=== PATIENT | female | born 1965 | race Caucasian/White ===

== ENCOUNTER 2023-01-10 07:33 | Outpatient (CLI) | payer BC, SELFPAY ==
--- NOTE | ~2023-01-10 | MM_ITS ---
EXAMINATION: MM screening osk[facility] BI w belen HISTORY: Screening mammogram TECHNIQUE: Craniocaudal and mediolateral oblique 3-D tomosynthesis images were obtained and synthetic 2-D images were generated. CAD analysis was submitted and interpreted. COMPARISON: No prior mammogram is available for comparison at this institution. BREAST PARENCHYMAL COMPOSITION: The breasts are heterogeneously dense, which may obscure small masses . FINDINGS: There are bilateral mammographic asymmetries including some asymmetric scattered increased density in the posterior upper left breast in the axillary tail area. Comparison with any prior mammogram examinations is recommended initially, with diagnostic mammogram and if necessary ultrasound examination if there is persistent significant change. No malignant calcification, skin thickening or retraction of either breast is evident. IMPRESSION: 1. Bilateral mammographic asymmetries 2. Recommend comparison with prior mammogram examinations, and diagnostic mammography and possibly ul trasound if required depending upon the findings of the comparison BI-RADS Category 0: Incomplete: Needs additional imaging evaluation. Reviewed, dictated and finalized at location A. IMPRESSION: 1. Bilateral mammographic asymmetries 2. Recommend comparison with prior mammogram examinations, and diagnostic mammo graphy and possibly ultrasound if required depending upon the findings of the c omparison BI-RADS Category 0: Incomplete: Needs additional imaging evaluation.
== END 2023-01-10 07:34 | disposition home or self-care (01) ==
PROVIDERS: Visit Provider Obstetrics & Gynecology
DX: Z12.31 Encounter for screening mammogram for malignant neoplasm of breast (principal); R92.8 Other abnormal and inconclusive findings on diagnostic imaging of breast
CPT/HCPCS: 77063; 77067

== ENCOUNTER 2024-03-20 07:44 | Outpatient (CLI) | payer BC, SELFPAY ==
--- NOTE | ~2024-03-20 | MM_ITS ---
EXAMINATION: MM screening osk[facility] BI w belen HISTORY: Screening mammogram TECHNIQUE: Craniocaudal and mediolateral oblique 3-D tomosynthesis images were obtained and synthetic 2-D images were generated. CAD analysis was submitted and interpreted. COMPARISON: 01/10/2023, 09/22/2021, 07/13/2020, 04/26/2020 BREAST PARENCHYMAL COMPOSITION:Dense: The breasts are heterogeneously dense, which may obscure small masses. FINDINGS: No suspicious mass, calcification, or architectural distortion are identified in either delfina ast to suggest malignancy. There has been no suspicious interval change. IMPRESSION: No mammographic evidence of malignancy. Recommend routine screening mammography in one year. BI-RADS Category 1: Negative Reviewed, dictated and finalized at location .
== END 2024-03-20 07:45 | disposition home or self-care (01) ==
LOC: ANHIMG 07:46
PROVIDERS: PCP Family Medicine; Visit Provider Obstetrics & Gynecology
DX: Z12.31 Encounter for screening mammogram for malignant neoplasm of breast (principal)
CPT/HCPCS: 77063; 77067

== ENCOUNTER 2024-12-29 21:03 | Emergency (ER) | payer BC, SELFPAY ==
--- NOTE | ~2024-12-29 | XR_ITS ---
XR finger 3rd RT min 2V Ordering provider: Keshia Alonzo PA-C History: . laceration DISTAL 3RD DIGIT WITH GLASS . Comparison: None. FINDINGS: BONES: No acute fracture or dislocation. 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 SOFT TISSUES: Normal. No radiopaque foreign bodies seen. IMPRESSION: No acute osseous abnormality. No definite radiopaque foreign bodies seen. Reviewed, dictated and finalized at location A.
[2024-12-29 21:05] VITALS: BP 125/79; PULSE 66; RESP 20; TEMP 36.5; O2SAT 100
--- OUTSIDE RECORDS SUMMARY | 2024-12-29 21:05 | XMS_ITS | Clinical Summary ---
Author Organization [facility] Medical Office Building [address] Address [address] [place] [address] Care Team Providers Care Tire Fixer Name Role Phone Matthew Nguyen MD Primary Care Provider Lorrie Rouse OD Unavailable [phone] Noble Elkins MD Unavailable [phone] Alka Tom MD Unavailable [phone] Allergies No known active allergies Medications multivitamin-Ca- iron-minerals tablet Take 1 tablet by mouth daily Active biotin 1 mg tablet Take 1 tablet (1,000 mcg total) by mouth daily Active calcium citrate-vitamin D3 (CITRACAL WITH D) 315 mg-6.25 mcg (250 unit) per tablet Take 1 tablet by mouth daily Active minoxidiL (Rogaine) 5 % foam 07/08/2016 Active omega 6-rsf-uyu-fish oil (Ultra Tilden-3) 200-300-1,000 mg capsule 03/31/2024 Active ALPRAZolam (XANAX) 0.25 mg tablet Take 1 tablet (0.25 mg total) by mouth daily as needed for anxiety (take 30 min prior to flying) 6 tablet 06/08/2024 Active omeprazole (PriLOSEC) 20 mg capsuleIndicatio ns:Gastroesophag eal reflux disease without esophagitis Take 1 capsule (20 mg total) by mouth daily 30 capsule 2 10/09/2024 01/08/20 25 Active Active Problems Problem Noted Date Diagnosed Date Encounter for medical examination to establish c are 05/11/2022 Assessment & Plan (05/11/2022 10:44 AM BIOMETRY TEACHER): A(n) initial well adult visit has been performed today. Sharlene Landry is not up to date on screening tests. She is in need of Cervical cancer screening. She is up to date on needed preventative vaccinations Labs pending Continue current regimen; though we may need to pare down the vitamin D intake based on the lab results Family history of esophageal cancer 05/18/2021 Overview (05/18/2021): Added automatically from request for surgery [id number] Healthcare maintenance 05/17/2021 Overview (09/22/2021): IZ's: [x] Tetanus done 2019 [x] Zoster: done 2019 [] Pneumococcal: PPSV23 before age 65 if CHF, DM, EtOH, liver, smoking; PCV-13 at age 65 with shared decision-making (not universally recommended), PPSV23 for all age >65 Cancer screenings: Last CRC screening: wnl 2020, due again 2030 Lung CA screening: not indicated Last Pap: wnl 03/2020. Repeat 2024 Last Mammo: wnl 08/2021 Other: Last DEXA: Age 63, q3-5 yr [x] HIV status: Nonreactive 08/2021 [] HepB immunity status: [x] HepC status: non-reactive 2020 [] Advanced directive and POLST Assessment & Plan (06/06/2021 8:45 AM BIOMETRY TEACHER): .-- Nutrition: Recommend moderation in sodium, saturated fat and cholesterol, and caffeine intake. Recommend caloric balance, sufficient intake of fresh fruits, vegetables, fiber, calcium, iron, and 1 mg of folate supplement per day (for females capable of ). -- Exercise: Recommend regular exercise, including 150 minutes of moderate aerobic exercise per week, or 75 minutes of vigorous aerobic exercise per week PLUS muscle strengthening exercises at least 2 days per week. -- Substance Use: Recommend cessation/primary prevention of tobacco, alcohol, or other drug use. No driving or other dangerous activities under the influence. Treatment for substance abuse is available. -- Sexuality: Sexually transmitted diseases, partner selection, use of condoms, avoidance of unintended and contraceptive options. -- Injury prevention: Safety belts, safety helmets, smoke and carbon monoxide detectors, smoking near bedding or upholstery. -- Dental health: Recommend regular teeth brushing, flossing, and dental visits. -- Immunizations: Recommend staying up-to-date on influenza, pneumonia, shingles, and TDaP vaccines History of colon polyps 11/29/2020 Overview (06/02/2021): Repeat colonoscopy in 10 years (May 2031) for screening. Use Colowrap again next time Bladder stones 09/19/2020 Assessment & Plan (06/06/2021 8:34 AM BIOMETRY TEACHER): Asymptomatic , continue to monitor Assessment & Plan (09/19/2020 10:00 AM CDT): Irritation ?secondary to bladder stones seen on CT passing through the urethra - low concern for UTI given UA negative for nitrites, only trace LE, no pain or frequency - recommend cranberry juice supplement, probiotic yogurt, stay well hydrated as empiric UTI prevention - do not recommend Abx at this time - RTC if pain worsens or you develop a fever Tinnitus of both ears 09/19/2020 Assessment & Plan (06/06/2021 8:41 AM BIOMETRY TEACHER): Still present, but it is mild. It is bilateral Assessment & Plan (09/19/2020 10:07 AM CDT): Info provided - Ddx most likely vascular in origin (she has known aortic atherosclerosis) vs. Less likely presbycusis, eustachian tube dysfunction, or neurologic in origin - no associated hearing loss - no ototoxic meds - recommend monitoring, no further workup at this time Aortic atherosclerosis 08/16/2020 Overview (08/16/2020): Seen on CTAP incidentally Associated with HLD Assessment & Plan (06/06/2021 8:35 AM BIOMETRY TEACHER): See HLD plan above Mixed hyperlipidemia 08/16/2020 Assessment & Plan (06/06/2021 8:46 AM BIOMETRY TEACHER): Starting statin today given borderline and rising HLD despite good diet and exercise Repeat in 3 months Abdominal pain, RLQ 08/02/2020 Assessment & Plan (06/06/2021 8:27 AM BIOMETRY TEACHER): Every once in a while has RLQ pain that is mild and very intermittent. It has overall been tolerable - LFTs wnl 06/01/21 Assessment & Plan (08/02/2020 2:19 PM BIOMETRY TEACHER): Localized tenderness in RLQ for 3 weeks - 09/07 pain, denies nausea or fever - Ddx acute appendicitis vs. Ovarian cyst. Vs. Torsion. No hernias appreciated. - recommend pelvic US to assess for above - if pelvic US is negative and pain persists, recommend CTAP to assess appendix - ED precautions reviewed - NSAID, tylenol, avoid abd muscle straining until workup is complete - low concern for constipation, diverticulosis, GI malignancy, or infectious gastroenteritis. - denies RUQ or epigastric pain making PUD or biliary colic less likely Resolved Problems Problem Noted Date Diagnosed Date Resolved Date Vertigo 04/07/2020 06/06/2021 Assessment & Plan (04/07/2020 3:19 PM CDT): Symptoms are rare and mild - counselled to call if experiencing worsening symptoms or nausea/vomiting - caution while driving to avoid whiplash effect and triggering vertigo - reviewed Abigail's maneuver, to use prn Visit for preventive health examination 04/07/2020 06/02/2021 Assessment & Plan (04/07/2020 3:18 PM CDT): Due for annual screenings including: Mammogram, colonoscopy, lipid screen, liver, kidney, thyroid screen, HepC, anemia check - not indicated: DM screen - Pap performed Mar 2020, will obtain prior records. IF done with HPV, due again 2024. If not done with HPV, due 2022 - counselled on healthy diet and exercise Encounter for screening mamm ogram for breast cancer 04/07/2020 06/06/2021 Assessment & Plan (04/07/2020 3:18 PM CDT): Given strong family history of various cancers (mother, father, sibling), consider testing for FAP or BRCA - she is asymptomatic at this time - pt counselled on option of genetic counselling, this remains an option in the future at any time Encounters Date Type Department Care Team Description 5 Results Follow-Up [facility] Gastroenterology at [address] [address] Jonathan Santos MD Surgical pathology 5 7:15 AM CDT - 5 7:30 AM CDT Surgery [facility] [address] [place] [address] Jonathan Santos MD ESOPHAGOGASTRODUODENOSCOPY BIOPSY 5 7:10 AM CDT Anesthesia Event [facility] [address] [place] [address] Luciana Eli MD 5 6:04 AM CDT - 5 8:10 AM CDT Hospital Encounter [facility] [address] [place] [address] Jonathan Santos MD Family history of esophageal cancer Discharge Disposition: Discharge to home or self care 5 Orders Only [facility] Gastroenterology at [address] [address] Jonathan Santos MD Gastroesophageal reflux disease without esophagitis (Primary Dx) from Last 3 Months Immunizations Immunization Administration Dates Next Due Influenza, Quadrivalent, Aleyda l Culture-based MDCK, Preservative Free, Antibiotic Free, Intramuscular 04/04/2020 Influenza, Quadrivalent, Spl it, Preservative Free, Intramuscular 05/13/2023,04/24/2022,06/06/2021 Influenza, Trivalent, Preser vative Free, Intramuscular 05/08/2024 Influenza, Unspecified 04/04/2020,03/31/2019 Pfizer SARS-CoV-2 Monovalent Vaccination (12+ Yrs) PURPLE 10/21/2020,09/28/2020 Tdap 04/07/2020 ZOSTER Recombinant 06/07/2020,04/07/2020 Surgical History Surgery Date Site/Laterality Comments TUBAL LIGATION 07/01/2002 - 06/30/2003 age 38 HERNIA REPAIR 07/01/2002 - 06/30/2003 BREAST LUMPECTOMY 07/01/2001 - 06/30/2002 Left benign BREAST CYST EXCISION 07/01/2001 - 06/30/2002 Left COLONOSCOPY UPPER GASTROINTESTINAL ENDOSCOPY Medical History Medical History Date Comments Vertigo 04/07/2020 Hyperlipidemia Family History Medical History Relation Name Comments Esophageal cancer Father Hyperlipidemia Father Hypertension Father Skin cancer Father Endometrial cancer Mother at age 72 kidney cyst Mother Breast cancer Other aunt and cousi ns Colon polyps Other Thyroid cancer Sister no chemo, wel l as of 03/2020 Relation Name Status Comments Father Alive Mother Other Sister Social History Tobacco Use Types Packs/Day Years Used Date Smoking Tobacco: Never Passive Smoke Exposure: Never Smokeless Tobacco: Never Alcohol Use Standard Drinks/Week Comments Yes 2 (1 standard drink = 0.6 oz pur e alcohol) occ AUDIT-C Answer Date Recorded Q1: How often do you have a drink containing alc ohol? Monthly or less 10/09/2024 Q2: How many drinks containi ng alcohol do you have on a typical day when you are drinking? 1 or 2 10/09/2024 Q3: How often do you have si x or more drinks on one occasion? Never 10/09/2024 PHQ-2 Answer Date Recorded PHQ-2 Total Score (If total score is 3 or more points, staff should administer the PHQ-9) 0 05/18/2024 Personal Safety Answer Date Recorded Have you ever been in or are you currently in a harmful physical or emotional relationship or is someone making you feel afraid or unsafe? 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 on file Not on file Not on file Obstetrics History Last Filed Vital Signs Vital Sign Reading Time Taken Comments Blood Pressure 100/57 10/09/2024 7:50 AM CDT Pulse 73 10/09/2024 7:50 AM CDT Temperature 36.3 C (97.4 F) 10/09/2024 7:23 AM CDT Respiratory Rate 18 10/09/2024 7:50 AM CDT Oxygen Saturation 99% 10/09/2024 7:50 AM CDT Inhaled Oxygen Concentration - - Weight 61.2 kg (135 lb) 10/09/2024 6:35 AM CDT Height 162.6 cm (5' 4) 05/18/2024 8:12 AM BIOMETRY TEACHER Body Mass Index 23.17 05/18/2024 8:12 AM BIOMETRY TEACHER Plan of Treatment Health Maintenance Due Date Last Done Comments Hepatitis B Screening 1981 Influenza Vaccine (#1) 2025 , 05/13/2023, 04/24/2022, Additional history exists Breast Cancer Screening-Mammogram 03/20/2025 03/20/2024, 01/10/2023, 09/22/2021, Additional history exists Depression Screening 05/18/2025 05/18/2024, 05/13/2023, 05/07/2022, Additional history exists Regular Well Visit/Exam 18-64 05/18/2025 05/18/2024, 05/13/2023, 05/07/2022, Additional history exists Cervical Cancer Screening 06/30/20252023, 04/17/2023, 03/10/2020, Additional history exists Postponed from 05/07/2025 (Patient declined, but will receive in the future) Colon Cancer Screening-Colonoscopy 05/17/2026 05/17/2021, 08/23/2011 DTaP/Tdap/Td Vaccine (2 - Td or Tdap) 04/07/2030 04/07/2020 Zoster Vaccine Completed 06/07/2020, 04/07/2020 Hepatitis C Screening Completed 07/14/2020 Covid-19 Vaccine Completed 05/08/2024, , 06/07/2021, Additional history exists Pneumococcal vaccine <65 Aged Out No longer eligible based on patient's age to complete this topic Procedures Procedure Name Priority Date/Time Associated Diagnosis Comments SURGICAL PATHOLOGY Routine 10/09/2024 7:20 AM CDT Family history of esophageal cancer EGD 10/09/2024 7:14 AM CDT ESOPHAGOGASTRODUODENOSCOPY BIOPSY 10/09/2024 7:11 AM CDT Family history of esophageal cancer HM PAP SMEAR WITH HPV Routine 05/07/2024 8:41 AM BIOMETRY TEACHER HM MAMMOGRAPHY Routine 03/20/2024 2:56 PM CDT COLONOSCOPY 05/17/2021 2:32 PM BIOMETRY TEACHER HEPATITIS C ANTIBODY Routine 07/14/2020 8:17 AM BIOMETRY TEACHER from Last 3 Months or Most Recently Relevant to Health Maintenance Results * Surgical pathology (10/09/2024 7:20 AM CDT) Tissue (Gastric/Stomach biopsy) 10/09/2024 7:20 AM CDT Narrative PATHOLOGY [facility] - 10/12/2024 4:22 PM CDT [facility] Department of Pathology [address] [place] [address] Note to Patients: This report may contain a detailed description of human tissue sent by a health care provider to the laboratory for pathologic evaluation. The content of this report is essential for diagnosis and may provide important critical findings. This information may be unfamiliar to patients to review without a medical professional present. It is advised that the patient review this report in the presence of a health care provider who can answer questions and explain the details. Final Report Patient Name: SHARLENE LANDRY : 1965 (Age: 59) Gender: F Address: [address] [place] [address] Hospital #: [id number] Service: Gastro Location: Patient Type: [facility] OUTPATIENT Taken: 10/09/2024 Received: 10/09/2024 Accessioned: 10/09/2024 Reported: 10/12/2024 Physician(s): MD Matthew Hawkins M.D. Diagnosis: Gastric, biopsy: - Corpus and antral mucosa with no significant pathologic change. - No H. pylori or intestinal metaplasia identified. Christ Morse M.D. Report Electronically Reviewed and Signed Out By Christ Morse M.D. 10/12/2024 16:22:58 Specimen(s) Received: A: Gastric body and antrum biopsy rule out H.Pylori Microscopic Description: Microscopic examination is performed. Microscopic examination is performed. Clinical History: The patient is a 59-year-old woman with a family history of esophageal cancer. Operative procedure: Upper GI endoscopy with biopsy. Gross Description Received in formalin, labeled with the patient s identifiers and gastric body and antrum biopsy rule out H pylori and consists of five elise-pink tissue fragments ranging from 0.2-0.4 cm. Entirely submitted. Labeled A1. Jar 0. [facility]/10/09/2024 12:37 NAHUN Gomez, PA (ASCP) Microscopic slide review and interpretation for this case was performed at [facility], Department of Surgical Pathology, [address] [facility], [place] [id number], [place] [address] CLIA # [id number] Jonathan Santos MD LAB PATHOLOGY ORDERABLES Final Result PATHOLOGY [facility] * EGD (10/09/2024 7:14 AM CDT) Anatomical Region Laterality Modality Other Narrative Procedure Note Jonathan Santos MD - 10/09/2024 7:14 AM CDT [facility] GI ENDOSCOPY Patient Name: Sharlene Landry Procedure Date: 10/09/2024 7:14 AM Date of : 1965 Admit Type: Outpatient Age: 59 Gender: Female Attending MD: Jonathan Santos M.D. Room: [facility] ENDOSCOPY ROOM 06 Note Status: Finalized Procedure: Upper GI endoscopy Indications: Family history of esophageal cancer Referring MD: Providers: Jonathan Santos M.D. Medicines: See the Anesthesia note for documentation of the administered medications Complications: No immediate complications. Estimated Blood Loss: Estimated blood loss was minimal. Procedure: Pre-Anesthesia Assessment: - Prior to the procedure, a History and Physicalwas performed, and patient medications and allergieswere reviewed. The risks and benefits of the procedureand the sedation options and risks were discussed withthe patient. All questions were answered and informed consent was obtained. Patient identification and proposed procedure were verified. After reviewingthe risks and benefits, the patient was deemed in satisfactory condition to undergo the procedure.The anesthesia plan was to use monitored anesthesiacare (MAC). Immediately prior to administration of medications, the patient was re-assessed foradequacy to receive sedatives. The heart rate, respiratory rate, oxygen saturations, blood pressure, adequacyof pulmonary ventilation, and response to care were monitored throughout the procedure. The physical status of the patient was re-assessed after the procedure. The benefits, risks, and alternatives to theprocedure and sedation were discussed and informed consentwas obtained. The scope was passed under direct vision. The Endoscope was introduced through the mouth, and advanced to the second part of duodenum. The upperGI endoscopy was accomplished without difficulty. The patient tolerated the procedure well. Findings: The examined esophagus was normal. A small sliding type hiatal hernia was present. Patchy non-erosive mildly erythematous mucosa was found in thegastric antrum. Biopsies were taken with a cold forceps for Helicobacterpylori testing. The examined duodenum was normal. Impression: - Normal esophagus. - Small hiatal hernia. - Gastritis. Biopsied. - Normal examined duodenum. Recommendation: - Await pathology results. - Resume previous diet today. - Discharge patient to home. - Patient has a contact number available for emergencies. The signs and symptoms of potential delayed complications were discussed with thepatient. Return to normal activities tomorrow. Written discharge instructions were provided to thepatient. - Avoid NSAIDs. Low dose ASA ok if clinicallyindicated - Prilosec 20mg daily 30 minutes before breakfast x8 weeks - I would be happy to see you in my GI clinic ifyou have further questions or concerns or if symptoms progress Jonathan Santos M.D. 10/09/2024 7:25:34 AM Number of Addenda: 0 Note Initiated On: 10/09/2024 7:14 AM Recognized by the [employer] for promoting quality in endoscopy Jonathan Santos MD ENDOSCOPY PROCEDURES Marina l Result * HM PAP SMEAR WITH HPV (05/07/2024 8:41 AM BIOMETRY TEACHER) Historical Provider HEALTH MAINTENANCE Final Result * HM MAMMOGRAPHY (03/20/2024 2:56 PM CDT) Historical Provider HEALTH MAINTENANCE Final Result * COLONOSCOPY (05/17/2021 2:32 PM BIOMETRY TEACHER) Anatomical Region Laterality Modality Other Narrative Procedure Note Dago Gutierrez MD - 05/17/2021 2:32 PM CST [facility] GI Lab Report Patient Name: Procedure Date: 05/17/2021 2:32 PM Date of : 1965 Admit Type: Outpatient Age: 55 Gender: Female Note Status: Finalized Attending MD: Dago Gutierrez M.D. Procedure: Colonoscopy Procedure Date: 05/17/2021 2:32:38 PM Indications: Screening for colorectal malignant neoplasm, Last colonoscopy: 2011 Providers: Dago Gutierrez M.D. Referring Physician: Clive Valdez M.D. Medicines: Monitored Anesthesia Care Complications: No immediate complications. Estimated blood loss:None. Procedure: Pre-Anesthesia Assessment: - Prior to the procedure, a History and Physicalwas performed, and patient medications, allergies and sensitivities were reviewed. The patient'stolerance of previous anesthesia was reviewed. - The risks and benefits of the procedure and the sedation options and risks were discussed with the patient. All questions were answered and informed consent was obtained. - Patient identification and proposed procedurewere verified prior to the procedure by the physician,the nurse and the diesel maintenance technician. The procedure wasverified in the procedure room. - ASA Grade Assessment: II - A patient with mild systemic disease. The benefits, risks and alternatives of theprocedure and sedation were discussed and informed consentwas obtained. All questions were answered. Please referto the signed informed consent document in the medical record. The scope was passed under direct vision.The Colonoscope was introduced through the anus and advanced to the the cecum, identified byappendiceal orifice and ileocecal valve. The colonoscopy was performed without difficulty. The patient tolerated the procedure well. The quality of the bowel preparation was excellent. The bowel preparationused was SUTAB via split dose instruction. Findings: A 3 mm polyp was found in the rectum. The polyp was sessile. Thepolyp was removed with a cold snare. Resection and retrieval werecomplete. The sigmoid colon was moderately tortuous. Advancing the scoperequired straightening and shortening the scope to obtain bowel loopreduction. Colowrap used. Non-bleeding internal hemorrhoids were found during retroflexion. The hemorrhoids were small. Estimated Blood Loss: Estimated blood loss: none. Impression: - One 3 mm polyp in the rectum, removed with a cold snare. Resected and retrieved. - Tortuous colon. Colowrap used. - Non-bleeding internal hemorrhoids. Recommendation: - Await pathology results (7-10 days). - Repeat colonoscopy in 10 years for surveillance based on pathology results. Use Colowrap again next time. - - Use original regular Metamucil one tablespoonby mouth daily as needed for constipation - High fiber diet daily. (More fruits andvegetables, salads) Have patient schedule upper endoscopy at her convenience for evaluation of family history of esophageal cancer. Procedure Code(s): --- Professional --- 13327, Colonoscopy, flexible; with removal of tumor(s), polyp(s), or other lesion(s) by snare technique CPT copyright 2019 [employer]. All rights reserved. Electronically signed by Dr. Gutierrez Dago Gutierrez M.D. 05/17/2021 3:12:13 PM This report has been signed electronically. Number of Addenda: 0 Note Initiated On: 05/17/2021 2:32 PM Dago Gutierrez MD ENDOSCOPY PROCEDURES Ed ited Result - Final * Hepatitis C antibody (07/14/2020 8:17 AM BIOMETRY TEACHER) Hep C Ab <0.1 0.0 - 0.9 s/co ratio [facility] - Comment: Negative: < 0.8 Indeterminate: 0.8 - 0.9 Positive: > 0.9 The CDC recommends that a positive HCV antibody result be followed up with a HCV Nucleic Acid Amplification test (753206). 07/14/2020 8:17 AM BIOMETRY TEACHER 07/14/2020 Narrative [facility] - 07/15/2020 6:09 AM BIOMETRY TEACHER Performed at: [facility] [id number] Teaching Associate: Deangelo Boo PhD, Phone: [phone] Clive Valdez MD LAB MICROBIOLOGY - GENERAL ORD [facility] Final Result [facility] - from Last 3 Months or Most Recently Relevant to Health Maintenance Insurance [employer] [place] [employer] [place] [facility] Advance Directives For more information, please contact: [phone] * Full Code (Latest Code Status on File) Date Activated Date Inactivated Comments 11/29/2021 2:18 PM 11/29/2021 7:57 PM * Full Code Date Activated Date Inactivated Comments 05/17/2021 1:58 PM 05/17/2021 7:56 PM Care Teams Tire Fixer Relationship Specialty Start Date End Date aMtthew Nguyen MD [address] [place] [address] PCP - General Family Medicine 05/07/22 Lorrie Rouse OD [address] [place] [address] Optometry 05/07/22 Noble Elkins MD [address] [place] [address] Referring Physician Obstetrics and Gynecology 05/07/22 Alka Tom MD [address] [facility] [address] [place] [address] Dermatology 05/13/23
--- OUTSIDE RECORDS SUMMARY | 2024-12-29 21:05 | XMS_ITS | Referral Summary ---
Author Organization [facility] 1 Address [address] [place] [address] Care Team Providers Care Fountain Worker Name Role Phone Matthew Nguyen MD Primary Care Provider [phone] Lorrie Rouse OD Unavailable [phone] Noble Elkins MD Unavailable [phone] Alka Tom MD Unavailable Encounters Date Type Department Care Team Description 5 Results Follow-Up [facility] Gastroenterology at [address] [place] [phone] Jonathan Santos MD Surgical pathology 5 Orders Only [facility] Gastroenterology at [address] [place] [phone] Jonathan Santos MD Gastroesophageal reflux disease without esophagitis (Primary Dx) 5 7:15 AM CDT - 5 7:30 AM CDT Surgery [facility] [address] [place] [address] Jonathan Santos MD ESOPHAGOGASTRODUODENOSCOPY BIOPSY 5 7:10 AM CDT Anesthesia Event [facility] [address] [place] [address] Luciana Eli MD 5 6:04 AM CDT - 5 8:10 AM CDT Hospital Encounter [facility] [address] [place] [address] Jonathan Santos MD Family history of esophageal cancer Discharge Disposition: Discharge to home or self care from Last 3 Months Allergies No known active allergies Medications multivitamin-Ca- iron-minerals tablet Take 1 tablet by mouth daily Active biotin 1 mg tablet Take 1 tablet (1,000 mcg total) by mouth daily Active calcium citrate-vitamin D3 (CITRACAL WITH D) 315 mg-6.25 mcg (250 unit) per tablet Take 1 tablet by mouth daily Active minoxidiL (Rogaine) 5 % foam 07/08/2016 Active omega 0-xtu-cdj-fish oil (Ultra [place]-3) 200-300-1,000 mg capsule 03/31/2024 Active ALPRAZolam (XANAX) [...] 05/11/2022 Assessment & Plan (05/11/2022 10:44 AM BIKE SHOP MANAGER): A(n) initial well adult visit has been performed today. Carolyn Landry is not up to date on screening tests. She is in need of Cervical cancer screening. She is up to date on needed preventative vaccinations Labs pending Continue current regimen; though we may need to pare down the vitamin D intake based on the lab results Family history of esophageal cancer 05/18/2021 Overview (05/18/2021): Added automatically from request for surgery [id number] Healthcare maintenance 05/17/2021 Overview (09/22/2021): IZ's: [x] [...] POLST Assessment & Plan (06/06/2021 8:45 AM BIKE SHOP MANAGER): .-- Nutrition: Recommend moderation in sodium, saturated [...] 09/19/2020 Assessment & Plan (06/06/2021 8:34 AM BIKE SHOP MANAGER): Asymptomatic , continue to monitor Assessment & [...] 09/19/2020 Assessment & Plan (06/06/2021 8:41 AM BIKE SHOP MANAGER): Still present, but it is mild. It [...] HLD Assessment & Plan (06/06/2021 8:35 AM BIKE SHOP MANAGER): See HLD plan above Mixed hyperlipidemia 08/16/2020 Assessment & Plan (06/06/2021 8:46 AM BIKE SHOP MANAGER): Starting statin today given borderline and rising HLD despite good diet and exercise Repeat in 3 months Abdominal pain, RLQ 08/02/2020 Assessment & Plan (06/06/2021 8:27 AM BIKE SHOP MANAGER): Every once in a while has RLQ pain that is mild and very intermittent. It has overall been tolerable - LFTs wnl 06/01/21 Assessment & Plan (08/02/2020 2:19 PM BIKE SHOP MANAGER): Localized tenderness in RLQ for 3 weeks [...] option in the future at any time Immunizations Immunization Administration Dates Next Due Influenza, Quadrivalent, Aleyda l Culture-based MDCK, Preservative Free, Antibiotic Free, Intramuscular 04/04/2020 Influenza, Quadrivalent, Spl it, Preservative Free, Intramuscular 05/13/2023,04/24/2022,06/06/2021 Influenza, Trivalent, Preser vative Free, Intramuscular 05/08/2024 Influenza, Unspecified 04/04/2020,03/31/2019 Pfizer SARS-CoV-2 Monovalent Vaccination (12+ Yrs) PURPLE 10/21/2020,09/28/2020 Tdap 04/07/2020 ZOSTER Recombinant 06/07/2020,04/07/2020 Social History Tobacco Use Types Packs/Day Years [...] file Not on file Not on file Last Filed Vital Signs Vital Sign Reading [...] 162.6 cm (5' 4) 05/18/2024 8:12 AM BIKE SHOP MANAGER Body Mass Index 23.17 05/18/2024 8:12 AM BIKE SHOP MANAGER Plan of Treatment Not on file Procedures Procedure Name Priority Date/Time Associated Diagnosis Comments SURGICAL PATHOLOGY Routine 10/09/2024 7:20 AM CDT Family history of esophageal cancer EGD 10/09/2024 7:14 AM CDT ESOPHAGOGASTRODUODENOSCOPY BIOPSY 10/09/2024 7:11 AM CDT Family history of esophageal cancer HM PAP SMEAR WITH HPV Routine 05/07/2024 8:41 AM BIKE SHOP MANAGER HM MAMMOGRAPHY Routine 03/20/2024 2:56 PM CDT COLONOSCOPY 05/17/2021 2:32 PM BIKE SHOP MANAGER HEPATITIS C ANTIBODY Routine 07/14/2020 8:17 AM BIKE SHOP MANAGER from Last 3 Months or Most Recently Relevant to Health Maintenance Results * Surgical pathology (10/09/2024 7:20 AM CDT) Tissue (Gastric/Stomach biopsy) 10/09/2024 7:20 AM CDT Narrative PATHOLOGY [facility] - 10/12/2024 4:22 PM CDT [facility] Department of Pathology [address] [place] [address] Note to Patients: This report may contain [...] explain the details. Final Report Patient Name: CAROLYN LANDRY : 1965 (Age: 59) Gender: F Address: [address] [place] [address] Hospital #: [id number] Service: Gastro Location: Patient Type: [facility] OUTPATIENT Taken: 10/09/2024 Received: 10/09/2024 Accessioned: 10/09/2024 [...] cm. Entirely submitted. Labeled A1. Jar 0. [facility]/10/09/2024 12:37 NAHUN Gomez, PA (ASCP) Microscopic slide review and interpretation for this case was performed at [facility], Department of Surgical Pathology, [address] [facility] [place] [address], [place] [address] CLIA # [id number] us Jonathan Santos MD LAB PATHOLOGY ORDERABLES Final Result PATHOLOGY [facility] * EGD (10/09/2024 7:14 AM CDT) Anatomical Region Laterality Modality Other Narrative Procedure Note Jonathan Santos MD - 10/09/2024 7:14 AM CDT [facility] GI ENDOSCOPY Patient Name: Carolyn Landry Procedure Date: 10/09/2024 7:14 AM Date of : 1965 Admit Type: Outpatient Age: 59 Gender: Female Attending MD: Jonathan Santos M.D. Room: [facility] ENDOSCOPY ROOM 06 Note Status: Finalized Procedure: [...] On: 10/09/2024 7:14 AM Recognized by the [employer] [employer] for promoting quality in endoscopy Jonathan Santos MD ENDOSCOPY PROCEDURES Amrina l Result * HM PAP SMEAR WITH HPV (05/07/2024 8:41 AM BIKE SHOP MANAGER) us Historical Provider HEALTH MAINTENANCE Final Result * HM MAMMOGRAPHY (03/20/2024 2:56 PM CDT) us Historical Provider HEALTH MAINTENANCE Final Result * COLONOSCOPY (05/17/2021 2:32 PM BIKE SHOP MANAGER) Anatomical Region Laterality Modality Other Narrative Procedure Note Dago Gutierrez MD - 05/17/2021 2:32 PM CST [facility] GI Lab Report Patient Name: Procedure Date: [...] procedure by the physician,the nurse and the stain applicator. The procedure wasverified in the procedure room. [...] esophageal cancer. Procedure Code(s): --- Professional --- 50566, Colonoscopy, flexible; with removal of tumor(s), polyp(s), or other lesion(s) by snare technique CPT copyright 2019 [employer]. All rights reserved. Electronically signed by Dr. Gutierrez Dago Gutierrez M.D. 05/17/2021 3:12:13 PM This report has been signed electronically. Number of Addenda: 0 Note Initiated On: 05/17/2021 2:32 PM Dago Gutierrez MD ENDOSCOPY PROCEDURES Ed ited Result - Final * Hepatitis C antibody (07/14/2020 8:17 AM BIKE SHOP MANAGER) Hep C Ab <0.1 0.0 - 0.9 s/co ratio [facility] - Comment: Negative: < 0.8 Indeterminate: 0.8 - 0.9 Positive: > 0.9 The CDC recommends that a positive HCV antibody result be followed up with a HCV Nucleic Acid Amplification test (553543). 07/14/2020 8:17 AM BIKE SHOP MANAGER 07/14/2020 Narrative [facility] - 07/15/2020 6:09 AM BIKE SHOP MANAGER Performed at: - [facility] [id number] Control Manager: Deangelo Boo PhD, Phone: [phone] Clive Valdez MD LAB MICROBIOLOGY - [facility] Final Result Performing Organization Address City/State/[facility] Co de Phone Number [facility] from Last 3 Months or Most Recently Relevant to Health Maintenance Insurance [employer] [place] [employer] [place] [facility] Advance Directives For more information, please contact: [phone] * Full Code (Latest Code Status on File) Date Activated Date Inactivated Comments 11/29/2021 2:18 PM 11/29/2021 7:57 PM * Full Code Date Activated Date Inactivated Comments 05/17/2021 1:58 PM 05/17/2021 7:56 PM Care Teams Fountain Worker Relationship Specialty Start Date End Date Matthew Nguyen MD [address] [place] [address] PCP - General Family Medicine 05/07/22 Lorrie Rouse OD [address] [place] [address] Optometry 05/07/22 Noble Elkins MD [address] [place], [place] [phone] Referring Physician Obstetrics and Gynecology 05/07/22 Alka Tom MD [address] [place] [address] Dermatology 05/13/23
--- OUTSIDE RECORDS SUMMARY | 2024-12-29 22:02 | XMS_ITS | Clinical Summary ---
Author Organization [facility] Medical Office Building 1 Address [address] [place] [address] Care Team Providers Care Cloth Packer Name Role Phone Matthew Nguyen MD Primary Care Provider Lorrie Rouse OD Unavailable [phone] Noble Elkins MD Unavailable [phone] Alka Tmo MD Unavailable [phone] Allergies No known active allergies Medications multivitamin-Ca- iron-minerals tablet Take 1 tablet by mouth daily Active biotin 1 mg tablet Take 1 tablet (1,000 mcg total) by mouth daily Active calcium citrate-vitamin D3 (CITRACAL WITH D) 315 mg-6.25 mcg (250 unit) per tablet Take 1 tablet by mouth daily Active minoxidiL (Rogaine) 5 % foam 07/08/2016 Active omega 2-yef-smc-fish oil (Ultra [place]-3) 200-300-1,000 mg capsule 03/31/2024 Active ALPRAZolam (XANAX) [...] 05/11/2022 Assessment & Plan (05/11/2022 10:44 AM KEY ACCOUNT DIRECTOR): A(n) initial well adult visit has been [...] (05/18/2021): Added automatically from request for surgery [id number] Healthcare maintenance 05/17/2021 Overview (09/22/2021): IZ's: [x] [...] POLST Assessment & Plan (06/06/2021 8:45 AM KEY ACCOUNT DIRECTOR): .-- Nutrition: Recommend moderation in sodium, saturated [...] 09/19/2020 Assessment & Plan (06/06/2021 8:34 AM KEY ACCOUNT DIRECTOR): Asymptomatic , continue to monitor Assessment & [...] 09/19/2020 Assessment & Plan (06/06/2021 8:41 AM KEY ACCOUNT DIRECTOR): Still present, but it is mild. It [...] HLD Assessment & Plan (06/06/2021 8:35 AM KEY ACCOUNT DIRECTOR): See HLD plan above Mixed hyperlipidemia 08/16/2020 Assessment & Plan (06/06/2021 8:46 AM KEY ACCOUNT DIRECTOR): Starting statin today given borderline and rising HLD despite good diet and exercise Repeat in 3 months Abdominal pain, RLQ 08/02/2020 Assessment & Plan (06/06/2021 8:27 AM KEY ACCOUNT DIRECTOR): Every once in a while has RLQ pain that is mild and very intermittent. It has overall been tolerable - LFTs wnl 06/01/21 Assessment & Plan (08/02/2020 2:19 PM KEY ACCOUNT DIRECTOR): Localized tenderness in RLQ for 3 weeks [...] Department Care Team Description 5 Results Follow-Up [facility] Gastroenterology at [address] [phone] Jonathan Santos MD Surgical pathology 5 7:15 AM CDT - 5 7:30 AM CDT Surgery [facility] [address] [place] [address] Jonathan Santos MD ESOPHAGOGASTRODUODENOSCOPY BIOPSY 5 7:10 AM CDT Anesthesia Event [facility] [address] [place] [address] Luciana Eli MD 5 6:04 AM CDT - 5 8:10 AM CDT Hospital Encounter [facility] [address] [place] [address] Jonathan Santos MD Family history of esophageal cancer Discharge Disposition: Discharge to home or self care 5 Orders Only [facility] Gastroenterology at [address] [phone] Jonathan Santos MD Gastroesophageal reflux disease without [...] 162.6 cm (5' 4) 05/18/2024 8:12 AM KEY ACCOUNT DIRECTOR Body Mass Index 23.17 05/18/2024 8:12 AM KEY ACCOUNT DIRECTOR Plan of Treatment Health Maintenance Due Date [...] SMEAR WITH HPV Routine 05/07/2024 8:41 AM KEY ACCOUNT DIRECTOR HM MAMMOGRAPHY Routine 03/20/2024 2:56 PM CDT COLONOSCOPY 05/17/2021 2:32 PM KEY ACCOUNT DIRECTOR HEPATITIS C ANTIBODY Routine 07/14/2020 8:17 AM KEY ACCOUNT DIRECTOR from Last 3 Months or Most Recently Relevant to Health Maintenance Results * Surgical pathology (10/09/2024 7:20 AM CDT) Tissue (Gastric/Stomach biopsy) 10/09/2024 7:20 AM CDT Narrative PATHOLOGY [facility] - 10/12/2024 4:22 PM CDT [facility] Department of Pathology [address] [place] [address] Note to Patients: This report may contain [...] : 1965 (Age: 59) Gender: F Address: [address] [place] [address] Hospital #: [id number] Service: Gastro Location: Patient Type: [facility] OUTPATIENT Taken: 10/09/2024 Received: 10/09/2024 Accessioned: 10/09/2024 [...] cm. Entirely submitted. Labeled A1. Jar 0. [facility]/10/09/2024 12:37 NAHUN Gomez, PA (ASCP) Microscopic slide review and interpretation for this case was performed at [facility], Department of Surgical Pathology, [address] [facility] [place], [place] [id number], [place] [address] CLIA # [id number] Jonathan Santos MD LAB PATHOLOGY ORDERABLES Final Result PATHOLOGY [facility] * EGD (10/09/2024 7:14 AM CDT) Anatomical Region Laterality Modality Other Narrative Procedure Note Jonathan Santos MD - 10/09/2024 7:14 AM CDT [facility] GI ENDOSCOPY Patient Name: Sharlene Landry Procedure Date: 10/09/2024 7:14 AM Date of : 1965 Admit Type: Outpatient Age: 59 Gender: Female Attending MD: Jonathan Santos M.D. Room: [facility] ENDOSCOPY ROOM 06 Note Status: Finalized Procedure: [...] On: 10/09/2024 7:14 AM Recognized by the [employer] [place] [employer] for promoting quality in endoscopy Jonathan Santos MD ENDOSCOPY PROCEDURES Marina l Result * HM PAP SMEAR WITH HPV (05/07/2024 8:41 AM KEY ACCOUNT DIRECTOR) Historical Provider HEALTH MAINTENANCE Final Result * HM MAMMOGRAPHY (03/20/2024 2:56 PM CDT) Historical Provider HEALTH MAINTENANCE Final Result * COLONOSCOPY (05/17/2021 2:32 PM KEY ACCOUNT DIRECTOR) Anatomical Region Laterality Modality Other Narrative Procedure Note Dago Gutierrez MD - 05/17/2021 2:32 PM CST [facility] GI Lab Report Patient Name: Procedure Date: [...] procedure by the physician,the nurse and the resilient tile installer. The procedure wasverified in the procedure room. [...] esophageal cancer. Procedure Code(s): --- Professional --- 79608, Colonoscopy, flexible; with removal of tumor(s), polyp(s), or other lesion(s) by snare technique CPT copyright 2019 [employer] [place] [employer]. All rights reserved. Electronically signed by Dr. Gutierrez Dago Gutierrez M.D. 05/17/2021 3:12:13 PM This report has been signed electronically. Number of Addenda: 0 Note Initiated On: 05/17/2021 2:32 PM Dago Gutierrez MD ENDOSCOPY PROCEDURES Ed ited Result - Final * Hepatitis C antibody (07/14/2020 8:17 AM KEY ACCOUNT DIRECTOR) Hep C Ab <0.1 0.0 - 0.9 s/co ratio [facility] - Comment: Negative: < 0.8 Indeterminate: 0.8 - 0.9 Positive: > 0.9 The CDC recommends that a positive HCV antibody result be followed up with a HCV Nucleic Acid Amplification test (816083). 07/14/2020 8:17 AM KEY ACCOUNT DIRECTOR 07/14/2020 Narrative [facility] - 07/15/2020 6:09 AM KEY ACCOUNT DIRECTOR Performed at: [facility] [id number] Pressurised Container Filler: Deangelo Boo PhD, Phone: [phone] Clive Valdez MD LAB MICROBIOLOGY - [facility] Final Result [facility] - from Last 3 Months or Most Recently Relevant to Health Maintenance Insurance [employer] [place] [employer] [place] [facility] Advance Directives For more information, please contact: [phone] * Full Code (Latest Code Status on File) Date Activated Date Inactivated Comments 11/29/2021 2:18 PM 11/29/2021 7:57 PM * Full Code Date Activated Date Inactivated Comments 05/17/2021 1:58 PM 05/17/2021 7:56 PM Care Teams Cloth Packer Relationship Specialty Start Date End Date Matthew Nguyen MD [address] [place] [address] PCP - General Family Medicine 05/07/22 Lorrie Rouse OD [address] [place] [address] Optometry 05/07/22 Noble Elkins MD [address] [place] [address] Referring Physician Obstetrics and Gynecology 05/07/22 Alka Tom MD [address] [facility] [address] [place] [address] Dermatology 05/13/23
--- OUTSIDE RECORDS SUMMARY | 2024-12-29 22:02 | XMS_ITS | Referral Summary ---
Author Organization [facility] 1 Address [address] [place] [address] Care Team Providers Care Hoop Puncher Name Role Phone Matthew Nguyen MD Primary Care Provider Lorrie Rouse OD Unavailable [phone] Noble Elkins MD Unavailable [phone] Alka Tom MD Unavailable Encounters Date Type Department Care Team Description 5 Results Follow-Up [facility] Gastroenterology at [address] [place] [phone] Jonathan Santos MD Surgical pathology 5 Orders Only [facility] Gastroenterology at [address] [place] [phone] Jonathan Santos MD Gastroesophageal reflux disease without esophagitis (Primary Dx) 5 7:15 AM CDT - 5 7:30 AM CDT Surgery [facility] GI Lab [address] [place] [phone] Jonathan Santos MD ESOPHAGOGASTRODUODENOSCOPY BIOPSY 5 7:10 AM CDT Anesthesia Event [facility] GI [facility] [address] [place] [phone] Luciana Eli MD 5 6:04 AM CDT - 5 8:10 AM CDT Hospital Encounter [facility] GI Lab [address] [place] [address] Jonathan Santos MD Family history of esophageal [...] (Rogaine) 5 % foam 07/08/2016 Active omega 9-shk-vfr-fish oil (Ultra [place]-3) 200-300-1,000 mg capsule 03/31/2024 Active ALPRAZolam (XANAX) [...] 05/11/2022 Assessment & Plan (05/11/2022 10:44 AM WATER RIGHTS SPECIALIST): A(n) initial well adult visit has been [...] (05/18/2021): Added automatically from request for surgery [id number] Healthcare maintenance 05/17/2021 Overview (09/22/2021): IZ's: [x] [...] POLST Assessment & Plan (06/06/2021 8:45 AM WATER RIGHTS SPECIALIST): .-- Nutrition: Recommend moderation in sodium, saturated [...] 09/19/2020 Assessment & Plan (06/06/2021 8:34 AM WATER RIGHTS SPECIALIST): Asymptomatic , continue to monitor Assessment & [...] 09/19/2020 Assessment & Plan (06/06/2021 8:41 AM WATER RIGHTS SPECIALIST): Still present, but it is mild. It [...] HLD Assessment & Plan (06/06/2021 8:35 AM WATER RIGHTS SPECIALIST): See HLD plan above Mixed hyperlipidemia 08/16/2020 Assessment & Plan (06/06/2021 8:46 AM WATER RIGHTS SPECIALIST): Starting statin today given borderline and rising HLD despite good diet and exercise Repeat in 3 months Abdominal pain, RLQ 08/02/2020 Assessment & Plan (06/06/2021 8:27 AM WATER RIGHTS SPECIALIST): Every once in a while has RLQ pain that is mild and very intermittent. It has overall been tolerable - LFTs wnl 06/01/21 Assessment & Plan (08/02/2020 2:19 PM WATER RIGHTS SPECIALIST): Localized tenderness in RLQ for 3 weeks [...] 162.6 cm (5' 4) 05/18/2024 8:12 AM WATER RIGHTS SPECIALIST Body Mass Index 23.17 05/18/2024 8:12 AM WATER RIGHTS SPECIALIST Plan of Treatment Not on file Procedures Procedure Name Priority Date/Time Associated Diagnosis Comments SURGICAL PATHOLOGY Routine 10/09/2024 7:20 AM CDT Family history of esophageal cancer EGD 10/09/2024 7:14 AM CDT ESOPHAGOGASTRODUODENOSCOPY BIOPSY 10/09/2024 7:11 AM CDT Family history of esophageal cancer HM PAP SMEAR WITH HPV Routine 05/07/2024 8:41 AM WATER RIGHTS SPECIALIST HM MAMMOGRAPHY Routine 03/20/2024 2:56 PM CDT COLONOSCOPY 05/17/2021 2:32 PM WATER RIGHTS SPECIALIST HEPATITIS C ANTIBODY Routine 07/14/2020 8:17 AM WATER RIGHTS SPECIALIST from Last 3 Months or Most Recently Relevant to Health Maintenance Results * Surgical pathology (10/09/2024 7:20 AM CDT) Tissue (Gastric/Stomach biopsy) 10/09/2024 7:20 AM CDT Narrative PATHOLOGY [facility] - 10/12/2024 4:22 PM CDT [facility] Department of Pathology [address] [place] [address] Note to Patients: This report may contain [...] 1965 (Age: 59) Gender: F Address: [address] [place] [address] Hospital #: [id number] Service: Gastro Location: Patient Type: [facility] OUTPATIENT Taken: 10/09/2024 Received: 10/09/2024 Accessioned: [...] cm. Entirely submitted. Labeled A1. Jar 0. [facility]/10/09/2024 12:37 NAHUN Gomez, PA (ASCP) Microscopic slide review and interpretation for this case was performed at [facility], Department of Surgical Pathology, [address] [facility] [address], [place] [address] CLIA # [id number] us Jonathan Santos MD LAB PATHOLOGY ORDERABLES Final Result PATHOLOGY [facility] * EGD (10/09/2024 7:14 AM CDT) Anatomical Region Laterality Modality Other Narrative Procedure Note Jonathan Santos MD - 10/09/2024 7:14 AM CDT [facility] GI ENDOSCOPY Patient Name: Carolyn Landry Procedure Date: 10/09/2024 7:14 AM Date of : 1965 Admit Type: Outpatient Age: 59 Gender: Female Attending MD: Jonathan Santos M.D. Room: [facility] ENDOSCOPY ROOM 06 Note Status: Finalized Procedure: [...] On: 10/09/2024 7:14 AM Recognized by the [employer] for promoting quality in endoscopy Jonathan Santos MD ENDOSCOPY PROCEDURES Marina l Result * HM PAP SMEAR WITH HPV (05/07/2024 8:41 AM WATER RIGHTS SPECIALIST) us Historical Provider HEALTH MAINTENANCE Final Result * HM MAMMOGRAPHY (03/20/2024 2:56 PM CDT) us Historical Provider HEALTH MAINTENANCE Final Result * COLONOSCOPY (05/17/2021 2:32 PM WATER RIGHTS SPECIALIST) Anatomical Region Laterality Modality Other Narrative Procedure Note Dago Gutierrez MD - 05/17/2021 2:32 PM CST [facility] GI Lab Report Patient Name: Procedure Date: [...] procedure by the physician,the nurse and the flatwork catcher. The procedure wasverified in the procedure room. [...] esophageal cancer. Procedure Code(s): --- Professional --- 81020, Colonoscopy, flexible; with removal of tumor(s), polyp(s), or other lesion(s) by snare technique CPT copyright 2019 [employer]. All rights reserved. Electronically signed by Dr. Gutierrez Dago Gutierrez M.D. 05/17/2021 3:12:13 PM This report has been signed electronically. Number of Addenda: 0 Note Initiated On: 05/17/2021 2:32 PM Dago Gutierrez MD ENDOSCOPY PROCEDURES Ed ited Result - Final * Hepatitis C antibody (07/14/2020 8:17 AM WATER RIGHTS SPECIALIST) Hep C Ab <0.1 0.0 - 0.9 s/co ratio [facility] - Comment: Negative: < 0.8 Indeterminate: 0.8 - 0.9 Positive: > 0.9 The CDC recommends that a positive HCV antibody result be followed up with a HCV Nucleic Acid Amplification test (775657). 07/14/2020 8:17 AM WATER RIGHTS SPECIALIST 07/14/2020 Narrative [facility] - 07/15/2020 6:09 AM WATER RIGHTS SPECIALIST Performed at: - [facility] [id number] Cutter V Groove: Deangelo Boo PhD, Phone: [phone] Clive Valdez MD LAB MICROBIOLOGY - [facility] Final Result Performing Organization Address City/State/[facility] Co de Phone Number [facility] from Last 3 Months or Most Recently Relevant to Health Maintenance Insurance [employer] [place] [employer] [place] [facility] Advance Directives For more information, please contact: [phone] * Full Code (Latest Code Status on File) Date Activated Date Inactivated Comments 11/29/2021 2:18 PM 11/29/2021 7:57 PM * Full Code Date Activated Date Inactivated Comments 05/17/2021 1:58 PM 05/17/2021 7:56 PM Care Teams Hoop Puncher Relationship Specialty Start Date End Date Matthew Nguyen MD [address] [place] [address] PCP - General Family Medicine 05/07/22 Lorrie Rouse OD [address] [place] [address] Optometry 05/07/22 Noble Elkins MD [address] [place], [place] [phone] Referring Physician Obstetrics and Gynecology 05/07/22 Alka Tom MD [address] [place] [address] Dermatology 05/13/23
--- NOTE | 2024-12-29 22:05 | ED.WOUNDLAC ---
HPI - Wound/Laceration General Chief Complaint: Wound/Laceration Stated Complaint: wound Time Seen by Provider: 12/29/24 21:48 Source: patient Mode of arrival: ambulatory Limitations: no limitations History of Present Illness HPI narrative: This is a 59-year-old female that presents to the emergency department for laceration to the right 3rd finger. Sustained prior to arrival. Reports her coffee pot broke. She is up-to-date on tetanus vaccination. Denies decreased range of motion or numbness Related Data Allergies Allergy/AdvReac Type Severity Reaction Status Date / Time No Known Allergies Allergy Verified 12/29/24 21:04 Review of Systems Review of Systems: All systems reviewed & are unremarkable except as noted in HPI and below PMFSH Past Medical History Medical History (Updated 12/29/24 @ 22:45 by Keshia Alonzo PA-C) No active medical problems Social History Social History (Updated 12/29/24 @ 22:06 by Keshia Alonzo PA-C) Smoking status: Never smoker Exam Narrative: GENERAL: Well-appearing, well-nourished, and in no acute distress. HEAD: Normocephalic, atraumatic. EYES: EOMI. EXTREMITIES: Normal range of motion. No edema. 1cm superficial laceration to the palmar aspect of the distal phalanx SKIN: Warm, dry, no rash. NEURO: No focal deficits. Alert and oriented x3. PSYCH: Normal mood and affect Course Vital Signs Vital signs: Vital Signs Temperature 97.7 F 12/29/24 21:05 Pulse Rate 66 12/29/24 21:05 Respiratory Rate 12/29/24 21:05 Blood Pressure 125/79 12/29/24 21:05 Pulse Oximetry 100 12/29/24 21:05 Oxygen Delivery Room Air 12/29/24 21:05 Temperature 97.7 F 12/29/24 21:05 Pulse Rate 66 12/29/24 21:05 Respiratory Rate 20 12/29/24 21:05 Blood Pressure 125/79 12/29/24 21:05 Pulse Oximetry 100 12/29/24 21:05 Oxygen Delivery Room Air 12/29/24 21:05 Procedures Laceration Laceration 1: Date: 12/29/24 Time: 22:47 Site: hand Side (If applicable): right Size (cm): 1 Description: linear Depth: simple, single layer Pre-repair: irrigated ====== Skin Level ====== ====== Subcutaneous Layer ====== ====== Muscle Layer ====== ====== Tendon Layer ====== Dressing: Bleeding controlled, superficial laceration covered with antibiotic ointment and a bandage MDM - Wound/Laceration MDM Narrative Medical decision making narrative: Patient presents to the emergency department for superficial laceration to the right 3rd finger. She is neurovascularly intact. Reports she is up-to-date on tetanus vaccination. X-ray of the 3rd finger without acute osseous abnormality or evidence of foreign body. Patient's wound was cleansed and covered with antibiotic ointment and a bandage. Differential Diagnosis Differential diagnosis: Likely laceration, abrasion and avulsion of skin Imaging Data Radiologist's impression: ITS Impressions Finger X-Ray 12/29/24 22:11 IMPRESSION: No acute osseous abnormality. No definite radiopaque foreign bodies seen. Critical Care Time Critical Care Time Critical Care Time: No Discharge Plan Discharge Clinical Impression: Laceration Patient Disposition: Home Condition: Stable Instructions: Laceration (ED) Additional Instructions: Return to the emergency department if you experience fever, redness or swelling of your wound, abnormal drainage from your wound, or any other symptoms that are concerning to you. Apply antibiotic ointment daily. Do not soak the wound. Clean with mild soap and water daily Follow-up with your primary care doctor for wound check if needed Patient Language: Occitan Follow-up/Referrals: Patrick,Matthew Collins MD [Primary Care Provider] -
== END 2024-12-29 22:58 | disposition home or self-care (01) ==
PROVIDERS: Emergency Provider Physician Assistant; PCP Family Medicine
DX: S61.212A Laceration without foreign body of right middle finger without damage to nail, initial encounter (principal); W25.XXXA Contact with sharp glass, initial encounter
CPT/HCPCS: 73140; 99283

== ENCOUNTER 2025-01-08 23:07 | Emergency (ER) | payer BC, SELFPAY ==
--- OUTSIDE RECORDS SUMMARY | 2025-01-08 23:09 | XMS_ITS | Referral Summary ---
Author Organization [facility] 1 Address [address] [place] [address] Care Team Providers Care Museum Tour Guide Name Role Phone Matthew Nguyen MD Primary Care Provider Lorrie Rouse OD Unavailable [phone] Noble Elkins MD Unavailable Alka Tom MD Unavailable [phone] Encounters Date Type Department Care Team Description 5 Orders Only [facility] Primary Care at [address] [phone] ProviderErasto MD 5 Results Follow-Up [facility] Gastroenterology at [address] [place] [phone] Jonathan Santos MD Surgical pathology 5 Orders Only [facility] Gastroenterology at [address] [place] [phone] Jonathan Santos MD Gastroesophageal reflux disease without esophagitis (Primary Dx) 5 7:15 AM CDT - 5 7:30 AM CDT Surgery [facility] GI Lab [address] [place] [address] Jonathan Santos MD ESOPHAGOGASTRODUODENOSCOPY BIOPSY 5 7:10 AM CDT Anesthesia Event [facility] GI Lab [address] [place] [address] Luciana Eli MD 5 6:04 AM CDT - 5 8:10 AM CDT Hospital Encounter [facility] GI Lab [address] [place] [address] Jonathan Santos MD Family history of esophageal [...] (Rogaine) 5 % foam 07/08/2016 Active omega 7-cnx-poz-fish oil (Ultra [place]-3) 200-300-1,000 mg capsule 03/31/2024 Active ALPRAZolam (XANAX) 0.25 mg tablet Take 1 tablet (0.25 mg total) by mouth daily as needed for anxiety (take 30 min prior to flying) 6 tablet 06/08/2024 Active omeprazole (PriLOSEC) 20 mg capsuleIndicatio ns:Gastroesophag eal reflux disease without esophagitis Take 1 capsule (20 mg total) by mouth daily 30 capsule 2 10/09/2024 Active Active Problems Problem Noted Date Diagnosed Date Encounter for medical examination to establish c are 05/11/2022 Assessment & Plan (05/11/2022 10:44 AM TELEVISION ANNOUNCER): A(n) initial well adult visit has been [...] (05/18/2021): Added automatically from request for surgery [id number] Healthcare maintenance 05/17/2021 Overview (09/22/2021): IZ's: [x] [...] POLST Assessment & Plan (06/06/2021 8:45 AM TELEVISION ANNOUNCER): .-- Nutrition: Recommend moderation in sodium, saturated [...] 09/19/2020 Assessment & Plan (06/06/2021 8:34 AM TELEVISION ANNOUNCER): Asymptomatic , continue to monitor Assessment & [...] 09/19/2020 Assessment & Plan (06/06/2021 8:41 AM TELEVISION ANNOUNCER): Still present, but it is mild. It [...] HLD Assessment & Plan (06/06/2021 8:35 AM TELEVISION ANNOUNCER): See HLD plan above Mixed hyperlipidemia 08/16/2020 Assessment & Plan (06/06/2021 8:46 AM TELEVISION ANNOUNCER): Starting statin today given borderline and rising HLD despite good diet and exercise Repeat in 3 months Abdominal pain, RLQ 08/02/2020 Assessment & Plan (06/06/2021 8:27 AM TELEVISION ANNOUNCER): Every once in a while has RLQ pain that is mild and very intermittent. It has overall been tolerable - LFTs wnl 06/01/21 Assessment & Plan (08/02/2020 2:19 PM TELEVISION ANNOUNCER): Localized tenderness in RLQ for 3 weeks [...] 162.6 cm (5' 4) 05/18/2024 8:12 AM TELEVISION ANNOUNCER Body Mass Index 23.17 05/18/2024 8:12 AM TELEVISION ANNOUNCER Plan of Treatment Not on file Procedures Procedure Name Priority Date/Time Associated Diagnosis Comments XR FINGER 3RD MIDDLE RIGHT Schedule Routine, Read Routine (OP Routine) 12/29/2024 11:56 AM CDT SURGICAL PATHOLOGY Routine 10/09/2024 7:20 AM CDT Family history of esophageal cancer EGD 10/09/2024 7:14 AM CDT ESOPHAGOGASTRODUODENOSCOPY BIOPSY 10/09/2024 7:11 AM CDT Family history of esophageal cancer HM PAP SMEAR WITH HPV Routine 05/07/2024 8:41 AM TELEVISION ANNOUNCER HM MAMMOGRAPHY Routine 03/20/2024 2:56 PM CDT COLONOSCOPY 05/17/2021 2:32 PM TELEVISION ANNOUNCER HEPATITIS C ANTIBODY Routine 07/14/2020 8:17 AM TELEVISION ANNOUNCER from Last 3 Months or Most Recently Relevant to Health Maintenance Results * XR Finger 3rd Middle Right (12/29/2024 11:56 AM CDT) Anatomical Region Laterality Modality Upper Extremities, Hand, Fingers Right Radiographic Imaging Historical Provider MD [place] XR PROCEDURES Final R esult * Surgical pathology (10/09/2024 7:20 AM CDT) Tissue (Gastric/Stomach biopsy) 10/09/2024 7:20 AM CDT Narrative PATHOLOGY [facility] - 10/12/2024 4:22 PM CDT [facility] Department of Pathology [address] [place] [address] Note to Patients: This report may contain [...] : 1965 (Age: 59) Gender: F Address: [address] [place], [place] [id number] Hospital #: [id number] Service: Gastro Location: Patient Type: [facility] OUTPATIENT Taken: 10/09/2024 Received: 10/09/2024 [...] cm. Entirely submitted. Labeled A1. Jar 0. [facility]/10/09/2024 12:37 NAHUN Gomez, PA (ASCP) Microscopic slide review and interpretation for this case was performed at [facility], Department of Surgical Pathology, [address] [facility], [id number], [place] [address] CLIA # [id number] us Jonathan Santos MD LAB PATHOLOGY ORDERABLES Final Result PATHOLOGY [facility] * EGD (10/09/2024 7:14 AM CDT) Anatomical Region Laterality Modality Other Narrative Procedure Note Jonathan Santos MD - 10/09/2024 7:14 AM CDT [facility] GI ENDOSCOPY Patient Name: Sharlene Landry Procedure Date: 10/09/2024 7:14 AM Date of : 1965 Admit Type: Outpatient Age: 59 Gender: Female Attending MD: Jonathan Santos M.D. Room: [facility] ENDOSCOPY ROOM 06 Note Status: [...] On: 10/09/2024 7:14 AM Recognized by the [place] for promoting quality in endoscopy Jonathan Santos MD ENDOSCOPY PROCEDURES Marina l Result * HM PAP SMEAR WITH HPV (05/07/2024 8:41 AM TELEVISION ANNOUNCER) Historical Provider HEALTH MAINTENANCE Final Result * HM MAMMOGRAPHY (03/20/2024 2:56 PM CDT) us Historical Provider MD CURTIS HOFFMAN Final Result * COLONOSCOPY (05/17/2021 2:32 PM TELEVISION ANNOUNCER) Anatomical Region Laterality Modality Other Narrative Procedure Note Dago Gutierrez MD - 05/17/2021 2:32 PM CST [facility] GI Lab Report Patient Name: Procedure Date: 05/17/2021 2:32 PM Date of : 1965 Admit Type: Outpatient Age: 55 Gender: Female Note Status: Finalized Attending MD: Dago Guiterrez M.D. Procedure: Colonoscopy Procedure Date: 05/17/2021 2:32:38 [...] procedure by the physician,the nurse and the campus recruiting intern. The procedure wasverified in the procedure room. [...] esophageal cancer. Procedure Code(s): --- Professional --- 07903, Colonoscopy, flexible; with removal of tumor(s), polyp(s), or other lesion(s) by snare technique CPT copyright 2019 [employer]. All rights reserved. Electronically signed by Dr. Gutierrez Dago Gutierrez M.D. 05/17/2021 3:12:13 PM This report has been signed electronically. Number of Addenda: 0 Note Initiated On: 05/17/2021 2:32 PM Dago Gutierrez MD ENDOSCOPY PROCEDURES Ed ited Result - Final * Hepatitis C antibody (07/14/2020 8:17 AM TELEVISION ANNOUNCER) Hep C Ab <0.1 0.0 - 0.9 s/co ratio [facility] - 01 Comment: Negative: < 0.8 Indeterminate: 0.8 - 0.9 Positive: > 0.9 The CDC recommends that a positive HCV antibody result be followed up with a HCV Nucleic Acid Amplification test (125511). 07/14/2020 8:17 AM TELEVISION ANNOUNCER 07/14/2020 Narrative [facility] - 07/15/2020 6:09 AM TELEVISION ANNOUNCER Performed at: - [facility] [id number] Server Systems Administrator: Deangelo Boo PhD, Phone: [phone] Clive Valdez MD LAB MICROBIOLOGY - [facility] Final Result [facility] - 01 from Last 3 Months or Most Recently Relevant to Health Maintenance Insurance [employer] [place] [employer] [place] Advance Directives For more information, please contact: [phone] * Full Code (Latest Code Status on File) Date Activated Date Inactivated Comments 11/29/2021 2:18 PM 11/29/2021 7:57 PM * Full Code Date Activated Date Inactivated Comments 05/17/2021 1:58 PM 05/17/2021 7:56 PM Care Teams Museum Tour Guide Relationship Specialty Start Date End Date Matthew Nguyen MD [address] [place] [id number] PCP - General Family Medicine 05/07/22 Lorrie Rouse OD [address] [place] [address] Optometry 05/07/22 Noble Elkins MD [address] [facility] [address] [place] [address] Referring Physician Obstetrics and Gynecology 05/07/22 Alka Tom MD [address] [facility] [address] [place] [address] Dermatology 05/13/23
--- OUTSIDE RECORDS SUMMARY | 2025-01-08 23:09 | XMS_ITS | Clinical Summary ---
Author Organization [facility] Medical Office Building 1 Address [address] [place] [address] Care Team Providers Care Irrigation Supervisor Name Role Phone Matthew Nguyen MD Primary Care Provider [phone] Lorrie Rouse OD Unavailable [phone] Nolbe Elkins MD Unavailable [phone] Alka Tom MD Unavailable Allergies No known active allergies Medications multivitamin-Ca- iron-minerals tablet Take 1 tablet by mouth daily Active biotin 1 mg tablet Take 1 tablet (1,000 mcg total) by mouth daily Active calcium citrate-vitamin D3 (CITRACAL WITH D) 315 mg-6.25 mcg (250 unit) per tablet Take 1 tablet by mouth daily Active minoxidiL (Rogaine) 5 % foam 07/08/2016 Active omega 4-mcn-vjk-fish oil (Ultra [place]-3) 200-300-1,000 mg capsule 03/31/2024 Active ALPRAZolam (XANAX) [...] 05/11/2022 Assessment & Plan (05/11/2022 10:44 AM RETAIL LOAN ORIGINATOR): A(n) initial well adult visit has been [...] (05/18/2021): Added automatically from request for surgery [id number] Healthcare maintenance 05/17/2021 Overview (09/22/2021): IZ's: [x] [...] POLST Assessment & Plan (06/06/2021 8:45 AM RETAIL LOAN ORIGINATOR): .-- Nutrition: Recommend moderation in sodium, saturated [...] 09/19/2020 Assessment & Plan (06/06/2021 8:34 AM RETAIL LOAN ORIGINATOR): Asymptomatic , continue to monitor Assessment & [...] 09/19/2020 Assessment & Plan (06/06/2021 8:41 AM RETAIL LOAN ORIGINATOR): Still present, but it is mild. It [...] HLD Assessment & Plan (06/06/2021 8:35 AM RETAIL LOAN ORIGINATOR): See HLD plan above Mixed hyperlipidemia 08/16/2020 Assessment & Plan (06/06/2021 8:46 AM RETAIL LOAN ORIGINATOR): Starting statin today given borderline and rising HLD despite good diet and exercise Repeat in 3 months Abdominal pain, RLQ 08/02/2020 Assessment & Plan (06/06/2021 8:27 AM RETAIL LOAN ORIGINATOR): Every once in a while has RLQ pain that is mild and very intermittent. It has overall been tolerable - LFTs wnl 06/01/21 Assessment & Plan (08/02/2020 2:19 PM RETAIL LOAN ORIGINATOR): Localized tenderness in RLQ for 3 weeks [...] Department Care Team Description 5 Orders Only [facility] Primary Care at [address] [address] ProviderErasto MD 5 Results Follow-Up [facility] Gastroenterology at [address] [address] Jonathan Santos MD Surgical pathology 5 7:15 AM CDT - 5 7:30 AM CDT Surgery [facility] GI Lab [address] [place] [address] Jonathan Santos MD ESOPHAGOGASTRODUODENOSCOPY BIOPSY 5 7:10 AM CDT Anesthesia Event [facility] GI Lab [address] [place] [address] Luciana Eli MD 5 6:04 AM CDT - 5 8:10 AM CDT Hospital Encounter [facility] GI Lab [address] [place] [address] Jonathan Santos MD Family history of esophageal cancer Discharge Disposition: Discharge to home or self care 5 Orders Only [facility] Gastroenterology at [address] [place] [phone] Jonathan Santos MD Gastroesophageal reflux disease without [...] 162.6 cm (5' 4) 05/18/2024 8:12 AM RETAIL LOAN ORIGINATOR Body Mass Index 23.17 05/18/2024 8:12 AM RETAIL LOAN ORIGINATOR Plan of Treatment Health Maintenance Due Date [...] SMEAR WITH HPV Routine 05/07/2024 8:41 AM RETAIL LOAN ORIGINATOR HM MAMMOGRAPHY Routine 03/20/2024 2:56 PM CDT COLONOSCOPY 05/17/2021 2:32 PM RETAIL LOAN ORIGINATOR HEPATITIS C ANTIBODY Routine 07/14/2020 8:17 AM RETAIL LOAN ORIGINATOR from Last 3 Months or Most Recently Relevant to Health Maintenance Results * XR Finger 3rd Middle Right (12/29/2024 11:56 AM CDT) Anatomical Region Laterality Modality Upper Extremities, Hand, Fingers Right Radiographic Imaging us Historical Provider MD COTTON XR PROCEDURES Final R esult * Surgical pathology (10/09/2024 7:20 AM CDT) Tissue (Gastric/Stomach biopsy) 10/09/2024 7:20 AM CDT Narrative PATHOLOGY [facility] - 10/12/2024 4:22 PM CDT [facility] Department of Pathology [address] [place] [address] Note to Patients: This report may contain [...] : 1965 (Age: 59) Gender: F Address: [address] [place] [address] Hospital #: [id number] Service: Gastro Location: Patient Type: [facility] Taken: 10/09/2024 Received: 10/09/2024 Accessioned: 10/09/2024 [...] cm. Entirely submitted. Labeled A1. Jar 0. jjb/10/09/2024 12:37 NAHUN Gomez, CHERYL (ASCP) Microscopic slide review and interpretation for this case was performed at [facility], Department of Surgical Pathology, [address] [facility], [place] [id number], [place] [address] CLIA # [id number] us Jonathan Santos MD LAB PATHOLOGY ORDERABLES Final Result PATHOLOGY [facility] * EGD (10/09/2024 7:14 AM CDT) Anatomical Region Laterality Modality Other Narrative Procedure Note Jonathan Santos MD - 10/09/2024 7:14 AM CDT [facility] GI ENDOSCOPY Patient Name: Sharlene Landry Procedure Date: 10/09/2024 7:14 AM Date of : 1965 Admit Type: Outpatient Age: 59 Gender: Female Attending MD: Jonathan Santos M.D. Room: [facility] ENDOSCOPY ROOM 06 Note Status: [...] On: 10/09/2024 7:14 AM Recognized by the [employer] for promoting quality in endoscopy Jonathan Santos MD ENDOSCOPY PROCEDURES Marina l Result * HM PAP SMEAR WITH HPV (05/07/2024 8:41 AM RETAIL LOAN ORIGINATOR) Historical Provider HEALTH MAINTENANCE Final Result * HM MAMMOGRAPHY (03/20/2024 2:56 PM CDT) us Historical Provider HEALTH MAINTENANCE Final Result * COLONOSCOPY (05/17/2021 2:32 PM RETAIL LOAN ORIGINATOR) Anatomical Region Laterality Modality Other Narrative Procedure Note Dago Gutierrez MD - 05/17/2021 2:32 PM CST [facility] GI Lab Report Patient Name: Procedure Date: [...] procedure by the physician,the nurse and the electric meter repairer helper. The procedure wasverified in the procedure room. [...] esophageal cancer. Procedure Code(s): --- Professional --- 06370, Colonoscopy, flexible; with removal of tumor(s), polyp(s), or other lesion(s) by snare technique CPT copyright 2019 [employer]. All rights reserved. Electronically signed by Dr. Gutierrez Dago Gutierrez M.D. 05/17/2021 3:12:13 PM This report has been signed electronically. Number of Addenda: 0 Note Initiated On: 05/17/2021 2:32 PM Dago Gutierrez MD ENDOSCOPY PROCEDURES Ed ited Result - Final * Hepatitis C antibody (07/14/2020 8:17 AM RETAIL LOAN ORIGINATOR) Hep C Ab <0.1 0.0 - 0.9 s/co ratio [facility] - 01 Comment: Negative: < 0.8 Indeterminate: 0.8 - 0.9 Positive: > 0.9 The CDC recommends that a positive HCV antibody result be followed up with a HCV Nucleic Acid Amplification test (615792). 07/14/2020 8:17 AM RETAIL LOAN ORIGINATOR 07/14/2020 Narrative [facility] - 07/15/2020 6:09 AM RETAIL LOAN ORIGINATOR Performed at: 01 - [facility] [address] [id number] Profile Stitching Machine Operator: Deangelo Boo PhD, Phone: [phone] Clive Valdez MD LAB MICROBIOLOGY - [facility]AL [facility] Final Result [facility] - 01 from Last 3 Months or Most Recently Relevant to Health Maintenance Insurance [facility] [employer] [place] [employer] [place] Advance Directives For more information, please contact: [phone] * Full Code (Latest Code Status on File) Date Activated Date Inactivated Comments 11/29/2021 2:18 PM 11/29/2021 7:57 PM * Full Code Date Activated Date Inactivated Comments 05/17/2021 1:58 PM 05/17/2021 7:56 PM Care Teams Irrigation Supervisor Relationship Specialty Start Date End Date Matthew Nguyen MD [address] [place] [address] PCP - General Family Medicine 05/07/22 Lorrie Rouse OD [address] [place] [address] Optometry 05/07/22 Noble Elkins MD [address] [facility] [address] [place], [place] [id number] Referring Physician Obstetrics and Gynecology 05/07/22 Alka Tom MD [address] [facility] [address] [place] [address] Dermatology 05/13/23
[2025-01-08 23:14] VITALS: BP 148/91; PULSE 93; RESP 16; TEMP 36.4; O2SAT 100
[2025-01-08 23:42] LABS: Hematocrit 38.4 % (37.0-47.0); Hemoglobin 13.1 g/dL (12.0-15.0); Immature Granulocyte Percent A 0.4 % (0-0.5); Lymphocytes Absolute Auto 3.31 K/mm3 (0.9-3.2); Mean Corpuscular HGB Conc 34.1 g/dl (32-36); Mean Corpuscular Hemoglobin 30.6 pg (26-34); Mean Corpuscular Volume 89.7 fl (80-100); Nucleated Red Blood Cells Absolute Auto 0.000 K/mm3 (0.0-0.012); Nucleated Red Blood Cells Perc 0.0 % (0.0-0.2); Platelet Count Result 302 k/mm3 (150-375); Red Blood Count 4.28 M/mm3 (4.2-5.4); White Blood Count 16.6 K/mm3 (4.5-10.0)
[2025-01-08 23:45] VITALS: O2SAT 99
[2025-01-08 23:46] VITALS: BP 140/81; O2SAT 100
[2025-01-09] VITALS (13 sets, daily range): BP systolic 110–121; BP diastolic 72–82; O2SAT 98–100
[2025-01-09 00:15] LABS: Add Urine Microscopic? YES; Appearance Urine Clear (Clear); Glucose Urine UA Negative (Negative); Leukocyte Esterase Ur 1+ LEU/UL (Negative); Need Manual Microscopic Reviewed; Nitrate Urine Negative (Negative); Non Pathogenic Casts 0-2; Specific Grav Ur 1.027 (1.001-1.035)
--- OUTSIDE RECORDS SUMMARY | 2025-01-09 00:18 | XMS_ITS | Referral Summary ---
Author Organization [facility] Medical Office Building 1 Address [address] [place] [address] Care Team Providers Care Transportation Lead Name Role Phone Matthew Nguyen MD Primary Care Provider Lorrie Rouse OD Unavailable [phone] Noble Elkins MD Unavailable Alka Tom MD Unavailable Encounters Date Type Department Care Team Description 12/30/2024 Orders Only [facility] Primary Care at [address] [phone] Erasto Madison MD 10/20/2024 Results Follow-Up [facility] Gastroenterology at [address] [place] [address] Jonathan Santos MD Surgical pathology from Last 3 Months Allergies No known active allergies Medications multivitamin-Ca- iron-minerals tablet Take 1 tablet by mouth daily Active biotin 1 mg tablet Take 1 tablet (1,000 mcg total) by mouth daily Active calcium citrate-vitamin D3 (CITRACAL WITH D) 315 mg-6.25 mcg (250 unit) per tablet Take 1 tablet by mouth daily Active minoxidiL (Rogaine) 5 % foam 07/08/2016 Active omega 4-mri-hny-fish oil (Ultra [place]-3) 200-300-1,000 mg capsule 03/31/2024 Active ALPRAZolam (XANAX) [...] 05/11/2022 Assessment & Plan (05/11/2022 10:44 AM CSR RETAIL): A(n) initial well adult visit has been [...] (05/18/2021): Added automatically from request for surgery [id number] Healthcare maintenance 05/17/2021 Overview (09/22/2021): IZ's: [x] [...] POLST Assessment & Plan (06/06/2021 8:45 AM CSR RETAIL): .-- Nutrition: Recommend moderation in sodium, saturated [...] 09/19/2020 Assessment & Plan (06/06/2021 8:34 AM CSR RETAIL): Asymptomatic , continue to monitor Assessment & [...] 09/19/2020 Assessment & Plan (06/06/2021 8:41 AM CSR RETAIL): Still present, but it is mild. It [...] HLD Assessment & Plan (06/06/2021 8:35 AM CSR RETAIL): See HLD plan above Mixed hyperlipidemia 08/16/2020 Assessment & Plan (06/06/2021 8:46 AM CSR RETAIL): Starting statin today given borderline and rising HLD despite good diet and exercise Repeat in 3 months Abdominal pain, RLQ 08/02/2020 Assessment & Plan (06/06/2021 8:27 AM CSR RETAIL): Every once in a while has RLQ pain that is mild and very intermittent. It has overall been tolerable - LFTs wnl 06/01/21 Assessment & Plan (08/02/2020 2:19 PM CSR RETAIL): Localized tenderness in RLQ for 3 weeks [...] 162.6 cm (5' 4) 05/18/2024 8:12 AM CSR RETAIL Body Mass Index 23.17 05/18/2024 8:12 AM CSR RETAIL Plan of Treatment Not on file Procedures Procedure Name Priority Date/Time Associated Diagnosis Comments XR FINGER 3RD MIDDLE RIGHT Schedule Routine, Read Routine (OP Routine) 12/29/2024 11:56 AM CDT HM PAP SMEAR WITH HPV Routine 05/07/2024 8:41 AM CSR RETAIL HM MAMMOGRAPHY Routine 03/20/2024 2:56 PM CDT COLONOSCOPY 05/17/2021 2:32 PM CSR RETAIL HEPATITIS C ANTIBODY Routine 07/14/2020 8:17 AM CSR RETAIL from Last 3 Months or Most Recently Relevant to Health Maintenance Results * XR Finger 3rd Middle Right (12/29/2024 11:56 AM CDT) Anatomical Region Laterality Modality Upper Extremities, Hand, Fingers Right Radiographic Imaging us Historical Provider MD COTTON XR PROCEDURES Final R esult * HM PAP SMEAR WITH HPV (05/07/2024 8:41 AM CSR RETAIL) us Historical Provider HEALTH MAINTENANCE Final Result * HM MAMMOGRAPHY (03/20/2024 2:56 PM CDT) us Historical Provider HEALTH MAINTENANCE Final Result * COLONOSCOPY (05/17/2021 2:32 PM CSR RETAIL) Anatomical Region Laterality Modality Other Narrative Procedure Note Dago Gutierrez MD - 05/17/2021 2:32 PM CST [facility] GI Lab Report Patient Name: Procedure Date: [...] procedure by the physician,the nurse and the mail handler. The procedure wasverified in the procedure room. [...] esophageal cancer. Procedure Code(s): --- Professional --- 08303, Colonoscopy, flexible; with removal of tumor(s), polyp(s), or other lesion(s) by snare technique CPT copyright 2019 [employer]. All rights reserved. Electronically signed by Dr. Gutierrez Dago Gutierrez M.D. 05/17/2021 3:12:13 PM This report has been signed electronically. Number of Addenda: 0 Note Initiated On: 05/17/2021 2:32 PM Dago Gutierrez MD ENDOSCOPY PROCEDURES Ed ited Result - Final * Hepatitis C antibody (07/14/2020 8:17 AM CSR RETAIL) Hep C Ab <0.1 0.0 - 0.9 s/co ratio [facility] - 01 Comment: Negative: < 0.8 Indeterminate: 0.8 - 0.9 Positive: > 0.9 The CDC recommends that a positive HCV antibody result be followed up with a HCV Nucleic Acid Amplification test (539505). 07/14/2020 8:17 AM CSR RETAIL 07/14/2020 Narrative [facility] - 07/15/2020 6:09 AM CSR RETAIL Performed at: 01 - [facility] [id number] Mobile Sales Consultant: Deangelo Boo PhD, Phone: [phone] Clive Valdez MD LAB MICROBIOLOGY - [facility]AL [facility] Final Result [facility] - 01 from Last 3 Months or Most Recently Relevant to Health Maintenance Insurance [facility] [employer] [place] [employer] [place] Advance Directives For more information, please contact: [phone] * Full Code (Latest Code Status on File) Date Activated Date Inactivated Comments 11/29/2021 2:18 PM 11/29/2021 7:57 PM * Full Code Date Activated Date Inactivated Comments 05/17/2021 1:58 PM 05/17/2021 7:56 PM Care Teams Transportation Lead Relationship Specialty Start Date End Date Matthew Nguyen MD [address] [place] [address] PCP - General Family Medicine 05/07/22 Lorrie Rouse OD [address] [place] [address] Optometry 05/07/22 Noble Elkins MD [address] [facility] [address] [place] [address] Referring Physician Obstetrics and Gynecology 05/07/22 Akla Tom MD [address] [facility] [address] [place] [address] Dermatology 05/13/23
--- OUTSIDE RECORDS SUMMARY | 2025-01-09 00:18 | XMS_ITS | Clinical Summary ---
Author Organization [facility] Medical Office Building 1 Address [address] [place] [address] Care Team Providers Care Boiler Plant Operator Name Role Phone Matthew Nguyen MD Primary Care Provider Lorrie Rouse OD Unavailable [phone] Noble Elkins MD Unavailable [phone] Alka Tom MD Unavailable [phone] Allergies No known active allergies Medications multivitamin-Ca- iron-minerals tablet Take 1 tablet by mouth daily Active biotin 1 mg tablet Take 1 tablet (1,000 mcg total) by mouth daily Active calcium citrate-vitamin D3 (CITRACAL WITH D) 315 mg-6.25 mcg (250 unit) per tablet Take 1 tablet by mouth daily Active minoxidiL (Rogaine) 5 % foam 07/08/2016 Active omega 7-atk-qbg-fish oil (Ultra [place]ite-3) 200-300-1,000 mg capsule 03/31/2024 Active ALPRAZolam (XANAX) [...] 05/11/2022 Assessment & Plan (05/11/2022 10:44 AM ALUMNI RELATIONS MANAGER): A(n) initial well adult visit has [...] (05/18/2021): Added automatically from request for surgery [id number] Healthcare maintenance 05/17/2021 Overview (09/22/2021): IZ's: [x] [...] POLST Assessment & Plan (06/06/2021 8:45 AM ALUMNI RELATIONS MANAGER): .-- Nutrition: Recommend moderation in sodium, [...] 09/19/2020 Assessment & Plan (06/06/2021 8:34 AM ALUMNI RELATIONS MANAGER): Asymptomatic , continue to monitor Assessment [...] 09/19/2020 Assessment & Plan (06/06/2021 8:41 AM ALUMNI RELATIONS MANAGER): Still present, but it is mild. [...] HLD Assessment & Plan (06/06/2021 8:35 AM ALUMNI RELATIONS MANAGER): See HLD plan above Mixed hyperlipidemia 08/16/2020 Assessment & Plan (06/06/2021 8:46 AM ALUMNI RELATIONS MANAGER): Starting statin today given borderline and rising HLD despite good diet and exercise Repeat in 3 months Abdominal pain, RLQ 08/02/2020 Assessment & Plan (06/06/2021 8:27 AM ALUMNI RELATIONS MANAGER): Every once in a while has RLQ pain that is mild and very intermittent. It has overall been tolerable - LFTs wnl 06/01/21 Assessment & Plan (08/02/2020 2:19 PM ALUMNI RELATIONS MANAGER): Localized tenderness in RLQ for 3 [...] Department Care Team Description 12/30/2024 Orders Only [facility] Primary Care at [address] [phone] ProviderErasto MD 10/20/2024 Results Follow-Up [facility] Gastroenterology at [address] [place] [address] Jonathan Santos MD Surgical pathology from Last 3 Months Immunizations Immunization Administration [...] 162.6 cm (5' 4) 05/18/2024 8:12 AM ALUMNI RELATIONS MANAGER Body Mass Index 23.17 05/18/2024 8:12 AM ALUMNI RELATIONS MANAGER Plan of Treatment Health Maintenance Due Date [...] SMEAR WITH HPV Routine 05/07/2024 8:41 AM ALUMNI RELATIONS MANAGER HM MAMMOGRAPHY Routine 03/20/2024 2:56 PM CDT COLONOSCOPY 05/17/2021 2:32 PM ALUMNI RELATIONS MANAGER HEPATITIS C ANTIBODY Routine 07/14/2020 8:17 AM ALUMNI RELATIONS MANAGER from Last 3 Months or Most Recently Relevant to Health Maintenance Results * XR Finger 3rd Middle Right (12/29/2024 11:56 AM CDT) Anatomical Region Laterality Modality Upper Extremities, Hand, Fingers Right Radiographic Imaging us Historical Provider MD COTTON XR PROCEDURES Final R esult * HM PAP SMEAR WITH HPV (05/07/2024 8:41 AM ALUMNI RELATIONS MANAGER) us Historical Provider HEALTH MAINTENANCE Final Result * HM MAMMOGRAPHY (03/20/2024 2:56 PM CDT) us Historical Provider MD CURTIS HOFFMAN Final Result * COLONOSCOPY (05/17/2021 2:32 PM ALUMNI RELATIONS MANAGER) Anatomical Region Laterality Modality Other Narrative Procedure Note Dago Gutierrez MD - 05/17/2021 2:32 PM CST [facility] GI Lab Report Patient Name: Procedure [...] procedure by the physician,the nurse and the stuffing machine operator. The procedure wasverified in the procedure room. [...] esophageal cancer. Procedure Code(s): --- Professional --- 64741, Colonoscopy, flexible; with removal of tumor(s), polyp(s), or other lesion(s) by snare technique CPT copyright 2019 [place] [employer]. All rights reserved. Electronically signed by Dr. Gutierrez Dago Gutierrez M.D. 05/17/2021 3:12:13 PM This report has been signed electronically. Number of Addenda: 0 Note Initiated On: 05/17/2021 2:32 PM Dago Gutierrez MD ENDOSCOPY PROCEDURES Ed ited Result - Final * Hepatitis C antibody (07/14/2020 8:17 AM ALUMNI RELATIONS MANAGER) Hep C Ab <0.1 0.0 - 0.9 s/co ratio [facility] - 01 Comment: Negative: < 0.8 Indeterminate: 0.8 - 0.9 Positive: > 0.9 The CDC recommends that a positive HCV antibody result be followed up with a HCV Nucleic Acid Amplification test (496383). 07/14/2020 8:17 AM ALUMNI RELATIONS MANAGER 07/14/2020 Narrative [facility] - 07/15/2020 6:09 AM ALUMNI RELATIONS MANAGER Performed at: [address] [id number] Inseamer: Deangelo Boo PhD, Phone: [phone] Clive Valdez MD LAB MICROBIOLOGY - [facility] Final Result Performing Organization Address City/State/ZIP Co tn Phone Number [facility] - 01 from Last 3 Months or Most Recently Relevant to Health Maintenance Insurance [facility] [place] [facility] [place] Advance Directives For more information, please contact: [phone] * Full Code (Latest Code Status on File) Date Activated Date Inactivated Comments 11/29/2021 2:18 PM 11/29/2021 7:57 PM * Full Code Date Activated Date Inactivated Comments 05/17/2021 1:58 PM 05/17/2021 7:56 PM Care Teams Boiler Plant Operator Relationship Specialty Start Date End Date Matthew Nguyen MD [address] [place] [address] PCP - General Family Medicine 05/07/22 Lorrie Rouse OD [address] [place] [address] Optometry 05/07/22 Noble Elkins MD [address] [facility] [address] [place] [address] Referring Physician Obstetrics and Gynecology 05/07/22 Alka Tom MD [address] [facility] [address] [place] [address] Dermatology 05/13/23
[2025-01-09 00:20] LABS: Alanine Aminotransferase 26 U/L (6-35); Albumin Level 4.1 g/dL (3.5-5.1); Alkaline Phosphatase 89 U/L (38-126); Anion Gap 9 mmol/L (4-12); Aspartate Amino Transferase 37 U/L (14-36); Bilirubin,Total 0.3 mg/dL (0.2-1.3); Blood Urea Nitrogen 20 mg/dL (7-17); Calcium 9.1 mg/dL (8.4-10.2); Carbon Dioxide 26 mmol/L (22-30); Chloride 103 mmol/L (98-107); Estimated CRCL calculation 58 ml/min; Estimated Glomerular Filt Rate > 60; Glucose 103 mg/dL (65-110); Lipase 81 U/L (23-300); Magnesium 2.0 mg/dL (1.6-2.3); Potassium 3.9 mmol/L (3.4-5.0); Sodium 138 mmol/L (137-145); Total Protein 7.2 g/dL (6.3-8.2)
[2025-01-09] MEDS: SODIUM CHLORIDE 0.9% IV 1,000 ML 999 ML IV CONT (00:35)
--- NOTE | 2025-01-09 00:37 | ED_ITS ---
HPI - General Adult General Chief complaint: Nausea/Vomiting/Diarrhea Stated complaint: DIARRHEA X5D Time Seen by Provider: 01/09/25 00:12 History of Present Illness HPI narrative: Patient is a 59-year-old female who presents to the emergency department this evening complaining of diarrhea for the past 3 days. States that she recently finished a course of antibiotics, penicillins for a right eye stye. Denies any abdominal pain, states that when she has the diarrhea she has mild cramping but now is denying any abdominal pain, nausea or vomiting. Denies any additional symptoms or concerns at this time. Related Data Allergies Allergy/AdvReac Type Severity Reaction Status Date / Time No Known Allergies Allergy Verified 01/08/25 23:07 Review of Systems 2 Review of Systems: All systems are reviewed and are negative unless stated otherwise in the HPI. [facility] Past Medical History Medical History No active medical problems Social History Social History Smoking status: Never smoker Exam 2 Narrative: General: Alert, awake, afebrile, in no acute distress. HEENT: PERRL, no rhinorrhea, no post nasal drip, oropharynx clear. Neck: Trachea midline, no JVD, no lymphadenopathy. Cardiovascular: Regular rate and rhythm, no murmurs, rubs or gallops, no peripheral edema. Respiratory: Clear to auscultation bilaterally, no tachypnea, no wheezing, no rhonchi, no rubs, no respiratory distress. Abdomen: Soft, nontender, nondistended, no rebound, no guarding, no peritoneal signs. Musculoskeletal: No joint swelling or deformity, normal muscle tone. Skin: No rashes or petechia, no signs of infection. Psychiatric: Alert and oriented, normal behavior and judgment for situation. Neurological: Alert and oriented to person, place, and time. Follows all commands. No focal deficits, speech is clear and fluent. Course Vital Signs Vital signs: Vital Signs Temperature 97.5 F L 01/08/25 23:14 Pulse Rate 93 01/08/25 23:14 Respiratory Rate 16 01/08/25 23:14 Blood Pressure 148/91 H 01/08/25 23:14 Pulse Oximetry 100 01/08/25 23:14 Oxygen Delivery Room Air 01/08/25 23:14 Temperature 97.5 F L 01/08/25 23:14 Pulse Rate 93 01/08/25 23:14 Respiratory Rate 16 01/08/25 23:14 Blood Pressure 148/91 H 01/08/25 23:14 Pulse Oximetry 100 01/08/25 23:14 Oxygen Delivery Room Air 01/08/25 23:14 Medical Decision Making MDM Narrative Medical decision making narrative: The patient was evaluated by myself in the emergency department. History is obtained from patient who is an independent historian and physical exam was performed. External medical records were reviewed at this time. IV was established and pertinent tests were ordered. Patient was administered 1 L IV fluid bolus with normal saline. Laboratory results obtained revealing a leukocytosis of 16.6 otherwise unremarkable. Patient did bring a stool sample with her and it was tested for C diff and did return back positive. Administered her 1st dose of vancomycin p.o. in the emergency department and informed that she will be sent home on a script for the next 10 days. Medical decision making patient this time regarding obtaining CT scan was discussed. Giving the patient has no abdominal pain with a benign abdominal examination, patient agrees that no CT indicated at this time. Differential diagnosis considerations include dehydration, electrolyte derangements, acute kidney injury. Comorbidities impacting this visit include recent antibiotic use. I have evaluated and discussed social determinants of health with the patient that could potentially impact subsequent diagnosis and treatment plans. On repeat assessment of the patient, reevaluation revealed that the patient is doing well and is in no acute distress. Patient symptoms have improved since she arrived to our emergency department. Repeat vital signs were all reviewed and noted to be stable. Differential diagnosis and treatment plan were discussed with the patient at bedside. Patient agrees with discussion and after shared medical decision making agrees with discharge. All questions were answered to the patient's satisfaction. Patient will follow up with her PCP in 3-5 days. Patient was provided with strict return precautions and instructed to return to the emergency department if any new or worsening symptoms develop. The patient was discharged in stable condition. Vital Signs Vital Signs: Vital Signs Temperature 97.5 F L 01/08/25 23:14 Pulse Rate 93 01/08/25 23:14 Respiratory Rate 16 01/08/25 23:14 Blood Pressure 148/91 H 01/08/25 23:14 Pulse Oximetry 100 01/08/25 23:14 Oxygen Delivery Room Air 01/08/25 23:14 Temperature 97.5 F L 01/08/25 23:14 Pulse Rate 93 01/08/25 23:14 Respiratory Rate 16 01/08/25 23:14 Blood Pressure 148/91 H 01/08/25 23:14 Pulse Oximetry 100 01/08/25 23:14 Oxygen Delivery Room Air 01/08/25 23:14 Lab Data 01/08/25 23:24 01/08/25 23:24 Labs: Lab Results 01/08/25 01/08/25 01/09/25 Range/Units 23:24 23:57 00:36 WBC 16.6 H (4.5-10.0) K/mm3 RBC 4.28 (4.2-5.4) M/mm3 Hgb 13.1 (12.0-15.0) g/dL Hct 38.4 (37.0-47.0) % MCV 89.7 (80-100) fl MCH 30.6 (26-34) pg MCHC 34.1 (32-36) g/dl RDW 13.0 (11.5-14.5) % Plt Count 302 (150-375) k/mm3 MPV 8.8 (7.4-10.4) fl Immature Gran % (Auto) 0.4 (0-0.5) % Neut % (Auto) 67.6 (45.5-73.1) % Lymph % (Auto) 19.9 (18.3-44.2) % [place] % (Auto) 10.6 H (2.6-8.5) % Eos % (Auto) 0.9 (0-4.4) % Baso % (Auto) 0.6 (0.2-1.2) % Lymph # (Auto) 3.31 H (0.9-3.2) K/mm3 [place] # (Auto) 1.8 H (0.1-0.6) K/mm3 Eos # (Auto) 0.2 (0-0.3) K/mm3 Baso # (Auto) 0.1 (0.0-0.1) K/mm3 Abs Immat Gran (auto) 0.07 H (0.00-0.031) K/mm3 Absolute Neuts (auto) 11.2 H (1.3-6.7) K/mm3 Absolute Nucleated RBC 0.000 (0.0-0.012) K/mm3 Nucleated RBC % 0.0 (0.0-0.2) % Sodium 138 (137-145) mmol/L Potassium 3.9 (3.4-5.0) mmol/L Chloride 103 (98-107) mmol/L Carbon Dioxide 26 (22-30) mmol/L Anion Gap 9 (4-12) mmol/L BUN 20 H (7-17) mg/dL Creatinine 0.76 (0.7-1.0) mg/dL Estim Creat Clear Calc 58 ml/min Estimated GFR > 60 (59 - ) Glucose 103 (65-110) mg/dL Calcium 9.1 (8.4-10.2) mg/dL Magnesium 2.0 (1.6-2.3) mg/dL Total Bilirubin 0.3 (0.2-1.3) mg/dL AST 37 H (14-36) U/L ALT 26 (6-35) U/L Alkaline Phosphatase 89 (38-126) U/L Total Protein 7.2 (6.3-8.2) g/dL Albumin 4.1 (3.5-5.1) g/dL Lipase 81 (23-300) U/L Urine Color Yellow (Yellow) Urine Appearance Clear (Clear) Urine pH 5.5 (5.0-9.0) Ur Specific [place] 1.027 (1.001-1.035) Urine Protein Negative (Negative) mg/dL Urine Glucose (UA) Negative (Negative) mg/dL Urine Ketones Negative (Negative) mg/dL Ur Blood (Man) 1+ H (Negative) Urine Nitrate Negative (Negative) Urine Bilirubin Negative (Negative) Urine Urobilinogen 0.2 (<2.0) mg/dL Add Ur Microanalysis Reviewed Leukocyte Esterase Rfl 1+ H (Negative) PAULETTE/UL Urine RBC 0-2 (0-2) /hpf Urine WBC 6-10 H (0-3) /hpf Ur Squamous Epith Cells None seen (Few) /hpf Calcium Oxalate Crystal Present (None) /hpf Urine Bacteria None seen /hpf Urine Casts 0-2 Urine Mucus Present /lpf C. difficile (PCR) Pending Discharge Plan Discharge Clinical Impression: Diarrhea, Clostridium difficile infection Patient Disposition: Home Condition: Improved Instructions: Antibiotic Form, C. Diff (Clostridioides Difficile) Infection (DC), Acute Diarrhea (ED) Additional Instructions: Please take the prescribed antibiotic as instructed for your C diff infection. Follow-up with your family doctor within the next 3-5 days and return to the emergency department if any new or worsening symptoms develop. Patient Language: Yi Prescriptions: New vancomycin 125 mg capsule 125 mg PO Q6H 10 Days Qty: 40 0RF Follow-up/Referrals: Patrick,Matthew Collins MD [Primary Care Provider] - 3 Days Time of Disposition: 01:42
[2025-01-09 01:35] LABS: Toxigenic C. Diff POSITIVE (NEGATIVE)
[2025-01-09] MEDS: VANCOMYCIN HCL 125 MG ORAL CAPSULE PO (02:01)
== END 2025-01-09 02:08 | disposition home or self-care (01) ==
PROVIDERS: Emergency Provider Emergency Medicine; PCP Family Medicine
DX: A04.72 Enterocolitis due to Clostridium difficile, not specified as recurrent (principal)
CPT/HCPCS: 36415; 80053; 81001; 83690; 83735; 85025; 87493; 96360; 99283; A9270; J7030

== ENCOUNTER 2025-05-05 09:49 | Outpatient (CLI) | payer BC, SELFPAY ==
--- NOTE | ~2025-05-05 | MM_ITS ---
EXAMINATION: screening [facility] BI w [facility] INDICATION: Asymptomatic, referred for screening mammogram COMPARISON: 03/20/2024 through 07/13/2020 TECHNIQUE: Digital Breast Tomosynthesis CC, MLO views of Both breasts were obtained with computer-aided detection to assist in interpretation of the study. FINDINGS: The breasts are heterogeneously dense, which may obscure small masses. There is an asymmetry seen on the MLO view in the Superior left breast at middle third. Elsewhere, there are no mammographic features of malignancy. IMPRESSION: 1. Left breast Asymmetry. 2. No evidence of malignancy in the Right breast. RECOMMENDATION: Left breast Diagnostic mammogram with true lateral, appropriate spot compression views and an ultrasound if needed. BI-RADS Category 0: Incomplete: Needs additional imaging evaluation. Reviewed, dictated and finalized at location B. DRAWER IMPRESSION: 1. Left breast Asymmetry. 2. No evidence of malignancy in the Right breast. RECOMMENDATION: Left breast Diagnostic mammogram with true lateral, appropriate spot compressio n views and an ultrasound if needed. BI-RADS Category 0: Incomplete: Needs additional imaging evaluation.
--- OUTSIDE RECORDS SUMMARY | 2025-05-06 09:41 | XMS_ITS | Clinical Summary ---
Author Organization [facility] Building [address] [place] [address] Care Team Providers Care Suspender Maker Name Role Phone Matthew Nguyen MD Primary Care Provider Lorrie Rouse OD Unavailable [phone] Noble Elkins MD Unavailable [phone] Alka Tom MD Unavailable [phone] Allergies No known active allergies Medications multivitamin-Ca -iron-minerals tablet Take 1 tablet by mouth daily Active calcium citrate-vitamin D3 (CITRACAL WITH D) 315 mg-6.25 mcg (250 unit) per tablet Take 1 tablet by mouth daily Active minoxidiL (Rogaine) 5 % foam 07/08/2016 Active omega 8-jhs-coz-fish oil (Ultra [place]-3) 200-300-1,000 mg capsule 03/31/2024 Active ALPRAZolam (XANAX) 0.25 mg tablet Take 1 tablet (0.25 mg total) by mouth daily as needed for anxiety (take 30 min prior to flying) 6 tablet 06/08/2024 Active Active Problems Problem Noted Date Diagnosed Date C. difficile diarrhea 01/27/2025 Assessment & Plan (01/27/2025 9:43 AM CDT): Encounter for medical examination to establish c are 05/11/2022 Assessment & Plan (05/11/2022 10:44 AM CLINICAL ORTHOPTIST): A(n) initial well adult visit has been [...] (05/18/2021): Added automatically from request for surgery [id number] Healthcare maintenance 05/17/2021 Overview (09/22/2021): IZ's: [x] [...] POLST Assessment & Plan (06/06/2021 8:45 AM CLINICAL ORTHOPTIST): .-- Nutrition: Recommend moderation in sodium, saturated [...] 09/19/2020 Assessment & Plan (06/06/2021 8:34 AM CLINICAL ORTHOPTIST): Asymptomatic , continue to monitor Assessment & [...] 09/19/2020 Assessment & Plan (06/06/2021 8:41 AM CLINICAL ORTHOPTIST): Still present, but it is mild. It [...] HLD Assessment & Plan (06/06/2021 8:35 AM CLINICAL ORTHOPTIST): See HLD plan above Mixed hyperlipidemia 08/16/2020 Assessment & Plan (06/06/2021 8:46 AM CLINICAL ORTHOPTIST): Starting statin today given borderline and rising HLD despite good diet and exercise Repeat in 3 months Abdominal pain, RLQ 08/02/2020 Assessment & Plan (06/06/2021 8:27 AM CLINICAL ORTHOPTIST): Every once in a while has RLQ pain that is mild and very intermittent. It has overall been tolerable - LFTs wnl 06/01/21 Assessment & Plan (08/02/2020 2:19 PM CLINICAL ORTHOPTIST): Localized tenderness in RLQ for 3 weeks [...] Encounters Date Type Department Care Team Description 03/03/2025 11:45 AM CDT Office Visit [facility] Primary [facility] at [address] [address] Matthew Nguyen MD Diarrhea of presumed infectious origin (Primary Dx) 02/23/2025 Orders Only [facility] at [address] [address] Matthew Nguyen MD from Last 3 Months Immunizations Immunization Administration [...] Family History Medical History Relation Name Comments Learning disabilities Daughter Thalia Cancer Father Esophogial cancer Esophageal cancer Father Esophogial cancer Hearing loss Father Esophogial cancer Hyperlipidemia Father Esophogial cancer Hypertension Father Esophogial cancer Skin cancer Father Esophogial cancer Cancer Mother Endometrial Cancer Endometrial cancer Mother Endometrial Cancer dec eased at age 72 kidney cyst Mother Endometrial Cancer Breast cancer Other aunt and cousi ns Colon polyps Other Thyroid cancer Sister no chemo, wel l as of 03/2020 Relation Name Status Comments Daughter Thalia Alive Father Esophogial cancer Alive Mother Endometrial Cancer Other Sister Social History Tobacco Use Types [...] points, staff should administer the PHQ-9) 0 03/03/2025 Personal Safety Answer Date Recorded Have you [...] Sign Reading Time Taken Comments Blood Pressure 114/80 03/03/2025 11:43 AM CDT Pulse 68 03/03/2025 11:43 AM CDT Temperature 36 C (96.8 F) 03/03/2025 11:43 AM CDT Respiratory Rate 16 03/03/2025 11:43 AM CDT Oxygen Saturation 99% 03/03/2025 11:43 AM CDT Inhaled Oxygen Concentration - - Weight 59 kg (130 lb) 03/03/2025 11:43 AM CDT Height 162.6 cm (5' 4) 03/03/2025 11:43 AM CDT Body Mass Index 22.31 03/03/2025 11:43 AM CDT Plan of Treatment Health Maintenance Due Date Last Done Comments Hepatitis B Screening 1983 Covid-19 Vaccine ( season) 2025 05/08/2024, 04/24/2022, 06/07/2021, Additional history exists Influenza Vaccine (#1) 2025 , 05/13/2023, 04/24/2022, Additional history exists Breast Cancer Screening-Mammogram 03/20/2025 03/20/2024, 01/10/2023, 09/22/2021, Additional history exists Regular Well Visit/Exam 18-64 05/18/2025 05/18/2024, 05/13/2023, 05/07/2022, Additional history exists Cervical Cancer Screening 06/30/20252023, 04/17/2023, 03/10/2020, Additional history exists Postponed from 05/07/2025 (Patient declined, but will receive in the future) Depression Screening 03/03/2026 03/03/2025, 05/18/2024, 05/13/2023, Additional history exists Colon Cancer Screening-Colonoscopy 05/17/2026 05/17/2021, 08/23/2011 DTaP/Tdap/Td Vaccine (2 - Td or Tdap) 04/07/2030 04/07/2020 Zoster Vaccine Completed 06/07/2020, 04/07/2020 Hepatitis C Screening Completed 07/14/2020 Pneumococcal vaccine <65 Aged Out No longer eligible based on patient's age to complete this topic Procedures Procedure Name Priority Date/Time Associated Diagnosis Comments PAP SMEAR WITH HPV Routine 05/07/2024 8:41 AM CLINICAL ORTHOPTIST HM MAMMOGRAPHY Routine 03/20/2024 2:56 PM CDT COLONOSCOPY 05/17/2021 2:32 PM CLINICAL ORTHOPTIST HEPATITIS C ANTIBODY Routine 07/14/2020 8:17 AM CLINICAL ORTHOPTIST from Last 3 Months or Most Recently Relevant to Health Maintenance Results * HM PAP SMEAR WITH HPV (05/07/2024 8:41 AM CLINICAL ORTHOPTIST) us Historical Provider HEALTH MAINTENANCE Final Result * HM MAMMOGRAPHY (03/20/2024 2:56 PM CDT) us Historical Provider HEALTH MAINTENANCE Final Result * COLONOSCOPY (05/17/2021 2:32 PM CLINICAL ORTHOPTIST) Anatomical Region Laterality Modality Other Narrative Procedure Note Dago Gutierrez MD - 05/17/2021 2:32 PM CST [facility] GI Lab Report Patient Name: [...] procedure by the physician,the nurse and the jack setter. The procedure wasverified in the procedure room. [...] esophageal cancer. Procedure Code(s): --- Professional --- 86949, Colonoscopy, flexible; with removal of tumor(s), polyp(s), or other lesion(s) by snare technique CPT copyright 2019 [employer]. All rights reserved. Electronically signed by Dr. Gutierrez Dago Gutierrez M.D. 05/17/2021 3:12:13 PM This report has been signed electronically. Number of Addenda: 0 Note Initiated On: 05/17/2021 2:32 PM Dago Gutierrez MD ENDOSCOPY PROCEDURES Ed ited Result - Final * Hepatitis C antibody (07/14/2020 8:17 AM CLINICAL ORTHOPTIST) Pathologist [facility] Hep C Ab <0.1 0.0 - 0.9 s/co ratio [facility] - 01 Comment: Negative: < 0.8 Indeterminate: 0.8 - 0.9 Positive: > 0.9 The CDC recommends that a positive HCV antibody result be followed up with a HCV Nucleic Acid Amplification test (481909). 07/14/2020 8:17 AM CLINICAL ORTHOPTIST 07/14/2020 Narrative [facility] - 07/15/2020 6:09 AM CLINICAL ORTHOPTIST Performed at: 01 - [facility] [address] [id number] Monument Setter: Deangelo Boo PhD, Phone: [phone] Clive Valdez MD [facility] Final Result [facility] - 01 from Last 3 Months or Most Recently Relevant to Health Maintenance Insurance [facility] [employer] [place] [employer] [place] Advance Directives For more information, please contact: [phone] * Full Code (Latest Code Status on File) Date Activated Date Inactivated Comments 11/29/2021 2:18 PM 11/29/2021 7:57 PM * Full Code Date Activated Date Inactivated Comments 05/17/2021 1:58 PM 05/17/2021 7:56 PM Care Teams Suspender Maker Relationship Specialty Start Date End Date Matthew Nguyen MD [address] [place] [address] PCP - General Family Medicine 05/07/22 Lorrie Rouse OD [address] [place] [address] Optometry 05/07/22 Noble Elkins MD [address] [facility] [address] [place], [place] [id number] Referring Physician Obstetrics and Gynecology 05/07/22 Alka Tom MD [address] [facility] [address], [place] [address] Dermatology 05/13/23
== END 2025-05-05 09:50 | disposition home or self-care (01) ==
LOC: ANHFOHIMG 09:52
PROVIDERS: PCP Family Medicine; Visit Provider Obstetrics & Gynecology
DX: Z12.31 Encounter for screening mammogram for malignant neoplasm of breast (principal); R92.8 Other abnormal and inconclusive findings on diagnostic imaging of breast
CPT/HCPCS: 77063; 77067

== ENCOUNTER 2025-05-26 13:22 | Outpatient (CLI) | payer BC, SELFPAY ==
--- NOTE | ~2025-05-26 | MM_ITS ---
EXAMINATION: MM diagnostic oskar LT w belen HISTORY: Additional imaging TECHNIQUE: Craniocaudal and mediolateral oblique 3-D tomosynthesis images were obtained and synthetic 2-D images were generated. CAD analysis was submitted and interpreted. COMPARISON: May 05 BREAST PARENCHYMAL COMPOSITION: Dense: The breast tissue is heterogeneously dense, which lowers the sensitivity of mammography. FINDINGS: The finding questioned on the screening study does not persist with additional imaging. This is thought to have related to compression artifact. There are no suspicious calcifications. No unexplained architectural distortion is seen. There are no skin or nipple abnormalities identified. There is no adenopathy seen on the images submitted. IMPRESSION: No mammographic evidence to suggest malignancy is seen. The patient may return to screening mammography as per ACR guidelines. BI-RADS: 2 - Benign. Reviewed, dictated and finalized at location B. ETIC DENTIST
--- OUTSIDE RECORDS SUMMARY | 2025-05-26 13:28 | XMS_ITS | Clinical Summary ---
Author Organization [facility] [address] Address [address] [place] [address] Care Team Providers Care Regulator Inspector Name Role Phone Matthew Nguyen MD Primary Care Provider [phone] Lorrie Rouse OD Unavailable [phone] 20 Noble Elkins MD Unavailable [phone] Alka Tom MD Unavailable [phone] Allergies No known active allergies Medications multivitamin-C n-rvnp-cfkcbag s tablet Take 1 tablet by mouth daily Active calcium citrate-vitami n D3 (CITRACAL WITH D) 315 mg-6.25 mcg (250 unit) per tablet Take 1 tablet by mouth daily Active minoxidiL (Rogaine) 5 % foam 07/08/19 17 Active omega 0-icd-hcb-fish oil (Ultra [place]-3) 200-300-1,000 mg capsule 03/31/20 24 Active Saccharomyces boulardii (FLORASTOR) 250 mg capsule Take 1 capsule (250 mg total) by mouth commercial parts professional before breakfast Active psyllium (METAMUCIL) powder Take 1 packet by mouth daily Active ALPRAZolam (XANAX) 0.25 mg tablet Take 1 tablet (0.25 mg total) by mouth daily as needed for anxiety (take 30 min prior to flying) 6 tablet 06/08/20 24 025 Discontinued Active Problems Problem Noted Date Diagnosed Date Clostridium difficile infection 05/19/2025 Diarrhea 05/19/2025 Laceration of finger 05/19/2025 C. difficile diarrhea 01/27/2025 Assessment & Plan (01/27/2025 9:43 AM CDT): Encounter for medical examination to establish c are 05/11/2022 Assessment & Plan (05/11/2022 10:44 AM [employer]STING [employer]LE [employer]ER): A(n) initial well adult visit has been [...] (05/18/2021): Added automatically from request for surgery [id number] Healthcare maintenance 05/17/2021 Overview (09/22/2021): IZ's: [x] [...] POLST Assessment & Plan (06/06/2021 8:45 AM J[employer]STING ARMHOLE BASTER): .-- Nutrition: Recommend moderation in sodium, saturated [...] 09/19/2020 Assessment & Plan (06/06/2021 8:34 AM J[employer]STING [employer]LE BASTER): Asymptomatic , continue to monitor Assessment & [...] 09/19/2020 Assessment & Plan (06/06/2021 8:41 AM JUMP[employer]STING ARMHOLE BASTER): Still present, but it is mild. It [...] HLD Assessment & Plan (06/06/2021 8:35 AM JUMPBASTING ARMHOLE BASTER): See HLD plan above Mixed hyperlipidemia 08/16/2020 Assessment & Plan (06/06/2021 8:46 AM JUMP[employer]STING ARMHOLE BASTER): Starting statin today given borderline and rising HLD despite good diet and exercise Repeat in 3 months Abdominal pain, RLQ 08/02/2020 Assessment & Plan (06/06/2021 8:27 AM J[employer]STING [employer]HOLE B[employer]ER): Every once in a while has RLQ pain that is mild and very intermittent. It has overall been tolerable - LFTs wnl 06/01/21 Assessment & Plan (08/02/2020 2:19 PM J[employer]STING ARMHOLE [employer]ER): Localized tenderness in RLQ for 3 weeks [...] Encounters Date Type Department Care Team Description 05/26/2025 Results Follow-Up [facility] Primary Care at [place] [phone] Matthew Nguyen MD Hepatitis B core antibody, total Blood, Hepatitis B surface antibody (immune status) Blood, Hepatitis B Surface Antigen Blood, Additional followed-up results: 5 05/19/2025 9:05 AM [employer] [place] [address] Need for hepatitis B screening test; Mixed hyperlipidemia; Well adult exam 05/19/2025 8:00 AM [employer] Office Visit [facility] Primary Care at [address] [phone] Matthew Nguyen MD Annual physical exam (Primary Dx); Need for hepatitis B screening test 05/19/2025 Orders Only [facility] Primary Care at [address] [phone] Matthew Nguyen MD Primary osteoarthritis of left knee (Primary Dx) 05/10/2025 Results Follow-Up [facility] Primary Care at [address] [phone] Matthew Nguyen MD HM MAMMOGRAPHY 03/03/2025 11:45 AM CDT Office Visit [facility] Primary Care at [address] [phone] Matthew Nguyen MD Diarrhea of presumed infectious origin (Primary Dx) 02/23/2025 Orders Only [facility] Primary Care at [address] [phone] Matthew Nguyen MD from Last 3 Months Immunizations Immunization Administration Dates Next Due Influenza, Quadrivalent, Aleyda l Culture-based MDCK, Preservative Free, Antibiotic Free, Intramuscular 04/04/2020 Influenza, Quadrivalent, Spl it, Preservative Free, Intramuscular 05/13/2023,04/24/2022,06/06/2021 Influenza, Trivalent, Cell C ulture-based MDCK, Preservative Free, Antibiotic Free, Intramuscular 03/25/2025 Influenza, Trivalent, Preser vative Free, Intramuscular 05/08/2024 [...] Never Alcohol Use Standard Drinks/Week Comments Yes 0 (1 standard drink = 0.6 oz pur e alcohol) occ PHQ-2 Answer Date Recorded PHQ-2 Total Score (If total score is 3 or more points, staff should administer the PHQ-9) 0 05/19/2025 AUDIT-C Answer Date Recorded Q1: How often do you have a drink containing alc ohol? Monthly or less 05/19/2025 Q2: How many drinks containi ng alcohol do you have on a typical day when you are drinking? 1 or 2 05/19/2025 Q3: How often do you have si x or more drinks on one occasion? Never 05/19/2025 Personal Safety Answer Date Recorded Have you [...] Sign Reading Time Taken Comments Blood Pressure 100/66 05/19/2025 8:21 AM [employer]ER Pulse 63 05/19/2025 8:21 AM [employer]ER Temperature 35.9 C (96.6 F) 05/19/2025 8:21 AM [employer]ER Respiratory Rate 16 05/19/2025 8:21 AM [employer]ER Oxygen Saturation 99% 05/19/2025 8:21 AM [employer]ER Inhaled Oxygen Concentration - - Weight 62.1 kg (137 lb) 05/19/2025 8:21 AM [employer]LE [employer]ER Height 162.6 cm (5' 4) 05/19/2025 8:21 AM [employer]ER Body Mass Index 23.52 05/19/2025 8:21 AM [employer]ER Plan of Treatment Health Maintenance Due Date Last Done Comments Cervical Cancer Screening 06/30/20252023, 04/17/2023, 03/10/2020, Additional history exists Postponed from 05/07/2025 (Patient declined, but will receive in the future) Breast Cancer Screening-Mammogram 05/05/2026 05/05/2025, 03/20/2024, 01/10/2023, Additional history exists Colon Cancer Screening-Colonoscopy 05/17/2026 05/17/2021, 08/23/2011 Depression Screening 05/19/2026 05/19/2025, 03/03/2025, 05/18/2024, Additional history exists Regular Well Visit/Exam 18-64 05/19/2026 05/19/2025, 05/18/2024, 05/13/2023, Additional history exists DTaP/Tdap/Td Vaccine (2 - Td or Tdap) 04/07/2030 04/07/2020 Zoster Vaccine Completed 06/07/2020, 04/07/2020 Hepatitis C Screening Completed 07/14/2020 Covid-19 Vaccine Completed 03/25/2025, 01/2024, 04/24/2022, Additional history exists Influenza Vaccine Completed 03/25/2025, , 05/13/2023, Additional history exists Hepatitis B Screening Completed 05/19/2025 Pneumococcal vaccine <65 Aged Out No longer eligible based on patient's age to complete this topic Procedures Procedure Name Priority Date/Time Associated Diagnosis Comments EGFR Routine 05/19/2025 9:09 AM [employer]STING [employer]ER Well adult exam DIFFERENTIAL AUTO Routine 05/19/2025 9:0 9 AM [employer]ER Well adult exam CBC WITH AUTO DIFFERENTIAL Routine 05/19/2025 9:09 AM [employer]ER Well adult exam COMPREHENSIVE METABOLIC PANEL Routine 05/19/2025 9:09 AM [employer]ER Well adult exam LIPID PANEL Routine 05/19/2025 9:09 AM [employer] B[employer]ER Mixed hyperlipidemia HEPATITIS B SURFACE ANTIGEN Routine 05/19/2025 9:09 AM [employer]ING [employer] B[employer]ER Need for hepatitis B screening test HEPATITIS B SURFACE ANTIBODY (IMMUNE STATUS) Routine 05/19/2025 9:09 AM [employer]ING [employer] B[employer]ER Need for hepatitis B screening test HEPATITIS B CORE ANTIBODY, TOTAL Routine 05/19/2025 9:09 AM [employer]ER Need for hepatitis B screening test HM MAMMOGRAPHY Routine 05/05/2025 7:29 AM [employer]ING [employer]LE B[employer]ER HM PAP SMEAR WITH HPV Routine 05/07/2024 8:41 AM [employer]STING [employer]HOLE B[employer]ER COLONOSCOPY 05/17/2021 2:32 PM [employer]ER HEPATITIS C ANTIBODY Routine 07/14/2020 8:17 AM [employer]STING [employer]LE B[employer]ER from Last 3 Months or Most Recently Relevant to Health Maintenance Results * eGFR (05/19/2025 9:09 AM JUMPBASTING ARMHOLE BASTER) eGFR 84 >=60 mL/min/1. 73 m2 Comment: Interpretive Data Reference Interval Normal >/= 90 mL/min/1.73m2 Mildly decreased* 60 - 89 mL/min/1.73m2 Mildly to moderately decreased 45 - 59 mL/min/1.73m2 Moderately to severely decreased 30 - 44 mL/min/1.73m2 Severely decreased 15 - 29 mL/min/1.73m2 Kidney Failure < 15 mL/min/1.73m2 *Relative to young adult level Estimated glomerular filtration rate is determined by the 2020 CKD-EPI equation recommended by the National Kidney Foundation (A Unifying Approach to GFR Estimation: Recommendations of the NKF-ASK Task Force on Reassessing the Inclusion of Race in Diagnosing Kidney Disease, JASN 2020). The CKD-EPI equation should not be used for patients with unstable renal function and has not been validated in children and those over 70. Current interpretive data was last reviewed 2021. Blood 05/19/2025 9:09 AM J[employer]STING ARMHOLE BASTER 05/19/2025 10:31 AM [employer]STING ARMHOLE BASTER us Matthew Nguyen MD LAB BLOOD ORDERABLES Final Result [facility] [address] [facility] Department [place] [address] * Differential, auto (05/19/2025 9:09 AM J[employer]BASTING ARMHOLE BASTER) Neutrophil abs 3.64 1.50 - 6.50 K/cumm Imm gran abs 0.01 0.00 - 0.10 K/cumm [facility] Lymphocyte abs 2.89 0.80 - 3.30 K/cumm [facility] Monocyte abs 0.58 0.20 - 0.80 K/cumm [facility] Eosinophil abs 0.08 0.00 - 0.50 K/cumm [facility] Basophil abs 0.06 0.00 - 0.10 K/cumm [facility] Neutrophil pct 50.2 % [facility] Comment: Interpretive Data Percent cell count reference ranges are not reported, since discordance with absolute values may lead to misinterpretation of CBC data. Current Interpretive Data was last revised on 2017. Imm gran pct 0.1 % [facility] Comment: Interpretive Data Percent cell count reference ranges are not reported, since discordance with absolute values may lead to misinterpretation of CBC data. Current Interpretive Data was last revised on 2017. Lymphocyte pct 39.8 % [facility] Comment: Interpretive Data Percent cell count reference ranges are not reported, since discordance with absolute values may lead to misinterpretation of CBC data. Current Interpretive Data was last revised on 2017. Monocyte pct 8.0 % [facility] Comment: Interpretive Data Percent cell count reference ranges are not reported, since discordance with absolute values may lead to misinterpretation of CBC data. Current Interpretive Data was last revised on 2017. Eosinophil pct 1.1 % [facility] Comment: Interpretive Data Percent cell count reference ranges are not reported, since discordance with absolute values may lead to misinterpretation of CBC data. Current Interpretive Data was last revised on 2017. Basophil pct 0.8 % [facility] Comment: Interpretive Data Percent cell count reference ranges are not reported, since discordance with absolute values may lead to misinterpretation of CBC data. Current Interpretive Data was last revised on 2017. Blood 05/19/2025 9:09 AM [employer]STING [employer]ER 05/19/2025 10:29 AM J[employer]STING [employer]HOLE B[employer]ER us Matthew Nguyen MD LAB BLOOD ORDERABLES Final Result [facility] [address] [facility] Department [place] [address] * CBC with auto differential (05/19/2025 9:09 AM J[employer]BASTING ARMHOLE BASTER) WBC 7.26 3.80 - 9.90 K/cumm Hgb 15.3 11.9 - 15.5 g/dL [facility] Hct 44.7 35.6 - 45.5 % [facility] Plt 271 150 - 400 K/cumm [facility] MPV 9.1 9.1 - 12.3 fL [facility] RBC 5.14 3.90 - 5.20 M/cumm [facility] MCV 87.0 81.3 - 96.4 fL [facility] MCH 29.8 27.1 - 33.3 pg [facility] MCHC 34.2 32.3 - 35.7 g/dL [facility] RDW CV 14.2 11.1 - 14.9 % [facility] RDW SD 45.1 35.7 - 48.1 fL [facility] NRBC abs 0.00 0.00 - 0.01 K/cumm [facility] Blood 05/19/2025 9:09 AM [employer]ER 05/19/2025 10:29 AM [employer]ST[employer]ER Matthew Nguyen MD LAB BLOOD ORDERABLES Final Result Performing Organization Address City/[facility] Co de Phone Number [facility] [address] [place] [address] * Hepatitis B core antibody, total Blood (05/19/2025 9:09 AM J[employer]BASTING [employer]HOLE BASTER) [facility] Hep B core IgG/IgM Nonreactive Nonreactive Comment:Testing performed by : [facility], [address] [place]., [address] Blood 05/19/2025 9:09 AM [employer]STING [employer] B[employer]ER 05/19/2025 1:21 PM J[employer]STING [employer]HOLE B[employer]ER Narrative [facility] - 05/19/2025 2:02 PM J[employer]ING [employer]ER Draw with 05/18 labs Matthew Nguyen MD LAB MICROBIOLOGY - GENERAL ORDERABLES Final Result Performing Organization Address City/[facility] Co de Phone Number [facility] [address] [facility] [facility] [place] [address] * Hepatitis B surface antibody (immune status) Blood (05/19/2025 9:09 AM J[employer]STING [employer]HOLE B[employer]ER) HBsAb (immune status) Nonreactive Comment: Interpretive Data Nonreactive: This result is consistent with a lack of immunity to Hepatitis B Virus when used in the setting of routine screening. Equivocal: The immune status of the individual should be further assessed, if appropriate, after consideration of clinical status, risk factors, and additional diagnostic information. Reactive: This result is consistent with immunity to Hepatitis B Virus when used in the setting of routine screening. Current interpretive data was last revised on 19. Blood 05/19/2025 9:09 AM [employer]STING [employer] B[employer]ER 05/19/2025 10:29 AM [employer]ER Matthew Nguyen MD LAB MICROBIOLOGY - GENERAL ORDERABLES Final Result Performing Organization Address [facility] Co de Phone Number [address] [address] * Hepatitis B Surface Antigen Blood (05/19/2025 9:09 AM J[employer]STING ARMHOLE BASTER) HepBsAg Nonreactive Nonreactive Blood 05/19/2025 9:09 AM [employer]ER 05/19/2025 10:29 AM [employer]ER Matthew Nguyen MD LAB MICROBIOLOGY - GENERAL ORDERABLES Final Result Performing Organization Address [facility] Co de Phone Number [address] [address] * (ABNORMAL) Lipid panel (05/19/2025 9:09 AM J[employer]BASTING ARMHOLE BASTER) Cholesterol 242(H) 30 - 199 mg/dL Comment: Interpretive Data Ages < or = 19 years Acceptable: <170 mg/dL Borderline high: 170-199 mg/dL High: >or= 200 mg/dL Ages > or = 20 years Desirable: <200 mg/dL Borderline high: 200-239 mg/dL High: >or= 240 mg/dL Literature References: 1. Expert Panel on Integrated Guidelines for Cardiovascular Health and Risk Reduction in Children and Adolescents. Pediatrics 2011;128:S213 2. NCEP Expert Panel. Circulation 2004;110:227 Current Interpretive Data was last revised on 2018. Triglycerides 106 <=149 mg/dL [facility] Comment: Interpretive Data Ages < or = 9 years Acceptable: <75 mg/dL Borderline high: 75-99 mg/dL High: >or= 100 mg/dL Ages 10 to 20 years Acceptable: <90 mg/dL Borderline high: 90-129 mg/dL High: >or= 130 mg/dL Ages > or = 20 years Desirable: <150 mg/dL Borderline high: 150-199 mg/dL High: 200-499 mg/dL Very high: >or= 499 mg/dL Literature References: 1. Expert Panel on Integrated Guidelines for Cardiovascular Health and Risk Reduction in Children and Adolescents. Pediatrics 2011;128:S213 2. NCEP Expert Panel. Circulation 2004;110:227 Current Interpretive Data was last revised on 2018. HDL 62 >=40 mg/dL [facility] Comment: Interpretive Data Ages < or = 19 years Acceptable: >45 mg/dL Borderline low: 40-45 mg/dL Low: <40 mg/dL Ages > or = 20 years Desirable: >or= 60 mg/dL Low: <40 mg/dL Literature References: 1. Expert Panel on Integrated Guidelines for Cardiovascular Health and Risk Reduction in Children and Adolescents. Pediatrics 2011;128:S213 2. NCEP Expert Panel. Circulation 2004;110:227 Current Interpretive Data was last revised on 2018. LDL, calculated 161(H) <=129 mg/dL [facility] Comment: Interpretive Data Ages < or = 19 years Acceptable: <110 mg/dL Borderline high: 110-129 mg/dL High: >or= 130 mg/dL Ages > or = 20 years Optimal: <100 mg/dL Near optimal: 100-129 mg/dL Borderline high: 130-159 mg/dL High: >160 mg/dL Calculated using the Alex LDL-C estimating equation. This equation was implemented on 2024. Prior to this date LDL-C was estimated using the Friedewald equation. Literature References: 1. Expert Panel on Integrated Guidelines for Cardiovascular Health and Risk Reduction in Children and Adolescents. Pediatrics 2011;128:S213 2. NCEP Expert Panel. Circulation 2004;110:227 3. Alex Moon et al. SCOTTY Cardiol. 2020 October 29;5(5):540-548. doi: 10.1001/jamacardio.2020.0013 Current Interpretive Data was last revised on 2024. Non-HDL Cholesterol 180 mg/dL [facility] Comment: Interpretive Data Ages < or = 19 years Acceptable: <120 mg/dL Borderline high: 120-144 mg/dL High: >145 mg/dL Ages > or = 20 years When triglycerides are >200 mg/dL, Non-HDL cholesterol is a secondary target of therapy with treatment goals that are 30 mg/dL greater than the LDL cholesterol target. Literature References: 1. Expert Panel on Integrated Guidelines for Cardiovascular Health and Risk Reduction in Children and Adolescents. Pediatrics 2011;128:S213 2. NCEP Expert Panel. Circulation 2004;110:227 Current Interpretive Data was last revised on 2018. Chol/HDL ratio 4 [facility] Blood 05/19/2025 9:0 9 AM [employer] 05/19/2025 10:31 AM [employer]ER Matthew Nguyen MD LAB BLOOD ORDERABLES Final Result [facility] [address] [facility] Department [place] [address] * Comprehensive metabolic panel (05/19/2025 9:09 AM J[employer]STING [employer]HO[employer] BASTER) Sodium 139 135 - 145 mmol/L Potassium, pl 4.3 3.3 - 4.9 mmol/L [facility] Chloride 104 97 - 110 mmol/L [facility] CO2 27 22 - 32 mmol/L [facility] Anion gap 8 2 - 15 mmol/L [facility] BUN 15 6 - 25 mg/dL [facility] Creatinine 0.80 0.60 - 1.10 mg/dL [facility] Glucose 94 70 - 199 mg/dL [facility] Comment: Interpretive Data Fasting glucose >/= 126 mg/dl is diagnostic for diabetes. Fasting is defined as no caloric intake for at least 8 hours. Fasting glucose between 100 mg/dl to 125 mg/dl is diagnostic of prediabetes. In a patient with classic symptoms of hyperglycemia or hyperglycemic crisis, a random glucose >/= 200 mg/dl is diagnostic for diabetes. In the absence of unequivocal hyperglycemia, results should be confirmed by repeat testing. The classification and Diagnosis of Diabetes Diabetes Care 202; 46: S19-S40. Current interpretive data was last revised 2022. Calcium 9.3 8.5 - 10.3 mg/dL [facility] Bilirubin, total 0.4 0.1 - 1.2 mg/dL [facility] Protein, pl 6.9 6.5 - 8.5 g/dL [facility] Albumin 4.2 3.5 - 5.0 g/dL [facility] Alk phos 73 40 - 130 Units/L [facility] ALT 22 7 - 45 Units/L [facility] AST 32 10 - 45 Units/L [facility] Blood 05/19/2025 9:09 AM [employer] 05/19/2025 10:31 AM [employer]ER Matthew Nguyen MD LAB BLOOD ORDERABLES Final Result Performing Organization Address City/State/[facility] Co de Phone Number [place] [address] [facility] Department [place] [address] * (ABNORMAL) HM MAMMOGRAPHY (05/05/2025 7:29 AM [employer]ER) Mammography Abnormal Impressions Amber Liu MA - 05/05/2025 7:29 AM [employer] Left Breast diagnostic mammogram with true lateral, appropriate spot compression views and US if needed Historical Provider HEALTH MAINTENANCE Edited Result - Final * HM PAP SMEAR WITH HPV (05/07/2024 8:41 AM [employer]ER) Historical Provider HEALTH MAINTENANCE Final Result * COLONOSCOPY (05/17/2021 2:32 PM J[employer]ING [employer]LE [employer]ER) Anatomical Region Laterality Modality Other Narrative Procedure Note Dago Gutierrez MD - 05/17/2021 2:32 PM CST [facility] GI Lab Report Patient Name: Procedure Date: [...] by the physician,the nurse and the mail order clerk. The procedure wasverified in the procedure room. [...] esophageal cancer. Procedure Code(s): --- Professional --- 65727, Colonoscopy, flexible; with removal of tumor(s), polyp(s), or other lesion(s) by snare technique CPT copyright 2019 [employer]. All rights reserved. Electronically signed by Dr. Gutierrez Dago Gutierrez M.D. 05/17/2021 3:12:13 PM This report has been signed electronically. Number of Addenda: 0 Note Initiated On: 05/17/2021 2:32 PM us Dago Gutierrez MD ENDOSCOPY PROCEDURES Ed ited Result - Final * Hepatitis C antibody (07/14/2020 8:17 AM [employer]ER) Hep C Ab <0.1 0.0 - 0.9 s/co ratio [facility] - Comment: Negative: < 0.8 Indeterminate: 0.8 - 0.9 Positive: > 0.9 The CDC recommends that a positive HCV antibody result be followed up with a HCV Nucleic Acid Amplification test (114327). 07/14/2020 8:17 AM [employer]ER 07/14/2020 Narrative [facility] - 07/15/2020 6:09 AM [employer]ER Performed at: - [facility] [id number] [employer] Director: Deangelo Boo PhD, Phone: [phone] us Clive Valdez MD LAB MICROBIOLOGY - [facility] Final Result [facility] from Last 3 Months or Most Recently Relevant to Health Maintenance Insurance [employer] [facility] Advance Directives For more information, please contact: [phone] * Full Code (Latest Code Status on File) Date Activated Date Inactivated Comments 11/29/2021 2:18 PM 11/29/2021 7:57 PM * Full Code Date Activated Date Inactivated Comments 05/17/2021 1:58 PM 05/17/2021 7:56 PM Care Teams Regulator Inspector Relationship Specialty Start Date End Date Matthew Nguyen MD [address] [place] [address] PCP - General Family Medicine 05/07/22 Lorrie Rouse OD [address] [place] [address] Optometry 05/07/22 Noble Elkins MD [address] [place], [place] [id number] Referring Physician Obstetrics and Gynecology 05/07/22 Alka Tom MD [address] [facility] [address] [place] [address] Dermatology 05/13/23
--- OUTSIDE RECORDS SUMMARY | 2025-05-26 13:28 | XMS_ITS | Encounter Summary ---
Author Organization [facility] Healthcare Address [address] [place] [address] Care Team Providers Care Truck Chauffeur Name Role Phone Matthew Nguyen MD Primary Care Provider [phone] Lorrie Rouse OD Unavailable [phone] Noble Elkins MD Unavailable [phone] Alka Tom MD Unavailable [phone] Encounter Details Date Type Department Care Team (Late st Contact Info) Description 05/26/2025 Results Follow-Up [facility] Primary Care at [address] [address] Matthew Nguyen MD [address] [place] [address] [address] [place] [address] Hepatitis B core antibody, total Blood, Hepatitis B surface antibody (immune status) Blood, Hepatitis B Surface Antigen Blood, Additional followed-up results: 5 Social History Tobacco Use Types Packs/Day Years [...] file Not on file Not on file documented as of this encounter Plan of Treatment Not on file documented as of this encounter Visit Diagnoses Not on filedocumented in this encounter Care Teams Truck Chauffeur Relationship Specialty Start Date End Date Matthew Nguyen MD [address] [place] [address] PCP - General Family Medicine 05/07/22 Lorrie Rouse OD [address] [place] [address] Optometry 05/07/22 Noble Elkins MD [address] [place] [address] Referring Physician Obstetrics and Gynecology 05/07/22 Alka Tom MD [address] [facility] [address] [place] [address] Dermatology 05/13/23 documented as of this encounter
--- OUTSIDE RECORDS SUMMARY | 2025-05-26 13:28 | XMS_ITS | Encounter Summary ---
Author Organization [facility] Healthcare Address [address] [place] [address] Care Team Providers Care Edge Polisher Name Role Phone Matthew Nguyen MD Primary Care Provider [phone] Lorrie Rouse OD Unavailable [phone] Noble Elkins MD Unavailable [phone] Alka Tom MD Unavailable [phone] Encounter Details Date Type Department Care Team (Late st Contact Info) Description 05/10/2025 Results Follow-Up [facility] Primary Care at [address] [address] Matthew Nguyen MD [address] [place] [address] [address] [place] [address] MAMMOGRAPHY Social History Tobacco Use Types Packs/Day Years [...] on filedocumented in this encounter Care Teams Edge Polisher Relationship Specialty Start Date End Date Matthew Nguyen MD [address] [place] [address] PCP - General Family Medicine 05/07/22 Lorrie Rouse OD [address] [place] [address] Optometry 05/07/22 Noble Elkins MD [address] [facility] [address] [place] [address] Referring Physician Obstetrics and Gynecology 05/07/22 Alka Tom MD [address] [facility] [address] [place] [address] Dermatology 05/13/23 documented as of this encounter
== END 2025-05-26 13:23 | disposition home or self-care (01) ==
LOC: ANHFOHIMG 13:22
PROVIDERS: PCP Family Medicine; Visit Provider Obstetrics & Gynecology
DX: R92.8 Other abnormal and inconclusive findings on diagnostic imaging of breast (principal)
CPT/HCPCS: 77061; 77065; G0279